=== PATIENT | female | born 1985 ===

== ENCOUNTER 2016-02-29 00:59 | Emergency (ER) | payer BC ==
--- NOTE | 2016-02-29 06:16 | ED NURSING NOTES ---
Clinical Report - Nurses [facility] [address] [place] [address] 02/29/2016 1:00 Patient: MIRIAN MENDOZA TRIAGE Triage time 0103. Acuity: LEVEL 3. Chief Complaint: ABDOMINAL PAIN and NAUSEA. LUCINA COMA SCORE: Lucina Coma Scale: 15- eyes open spontaneously (4); best verbal response- oriented x 4 (5); best motor response- obeys commands (6). --01:12 Asiya Oropeza R.N. 01:03 02/29/16. BP: 132/101. HR: 60. RR: 20 (unlabored). O2 saturation: 100% on room air. Temp: 98 F (oral). Pain level now: 5/10. --01:12 Asiya Oropeza R.N. Weight: 92.5 kg stated. Height/Length: 64 inches Per Patient. BMI: 35. --01:02 Asiya Oropeza R.N. Medications LamoTRIgine Oral (Tablet Dispersible 200 mg) 1 tablet, daily. --01:08 Asiya Oropeza R.N. Omeprazole Oral 20 mg, daily. --01:09 Asiya Oropeza R.N. Allergies Amoxicillin. (Uncertain reaction in childhood) PCN. Possible (Uncertain reaction in childhood) --01:08 Asiya Oropeza R.N. Medication/allergy information source: the patient. --01:12 Asiya Oropeza R.N. History Arrived by private vehicle. Historian: patient. Accompanied by family. Primary physician ([facility]). ( pt c/o abdominal pain, vomiting and cold symptoms since yesterday.). This started yesterday. She has had nausea, vomiting and abdominal pain. No diarrhea. Treatment [employer]: (Mucinex, Zofran). PAST MEDICAL HX: Immunizations: (seasonal flu-). Last normal menstrual period- a few days ago. SOCIAL HX: Light tobacco smoker (cigarette)- less than 1/2 a pack per day. History of drug use: marijuana. No alcohol use. ABUSE ASSESSMENT: No report of abuse. FALL RISK ASSESSMENT: Fall risk assessment completed. No fall risk identified. NUTRITIONAL RISK ASSESSMENT: The nutritional risk assessment revealed no deficiencies. FUNCTIONAL ASSESSMENT: Functional assessment: no impairments noted. LEARNING NEEDS ASSESSMENT: The learning needs assessment revealed no barriers. SKIN INTEGRITY ASSESSMENT: Skin integrity risk assessment completed. No skin integrity risk identified. --01:12 Asiya Oropeza R.N. PROBLEMS: Bipolar Disorder. --01:10 Asiya Oropeza R.N. ADDITIONAL SURGERIES: Adenoidectomy. Gastric sleeve []. Tonsillectomy. Tubal Ligation. --01:10 Asiya Oropeza R.N. Interventions ID band on patient. To waiting room. --01:12 Asiya Oropeza R.N. PHYSICAL ASSESSMENT 01:20 assessment limited, pt in position on stretcher. deferred to MD. GENERAL / NEURO / PSYCH: Alert. Oriented X 4. Appears in pain and anxious. HEENT: Mucous membranes are pink. RESPIRATORY: Respirations not labored. CVS: Capillary refill less than 2 seconds. GI / : The patient has had nausea. SKIN: Skin is warm and dry. --02:05 Asiya Oropeza R.N. 01:20. Ambulatory to room. --02:05 Asiya Oropeza R.N. NURSING PROGRESS NOTES Patient gowned. Head of bed elevated. Two patient identifiers checked. Call light placed in reach. Side rails up x 2. Bed placed in lowest position. Brakes of bed on. Patient ready for evaluation. --01:12 Asiya Oropeza R.N. 01:12 02/29/2016 Site #1 started via IV in the left forearm with an 18g angiocath, with aseptic technique and good blood return; one attempt. Blood drawn: rainbow set. Labeled in the presence of the patient and sent to the lab. Saline lock flushed with 10 mL saline. --01:12 Asiya Oropeza R.N. 02:10 02/29/2016 Site #1. (Patient pulled her own IV out, she stated it was too sweaty and the tape bothered her). --02:25 Denise Bach 02:12 02/29/2016 Site #1 removed. Catheter intact. Bandaid applied. --02:27 Denise Bach 02:22 02/29/2016 Site #2 started via IV in the right antecubital space with an 20g angiocath, with aseptic technique and good blood return; one attempt. Blood drawn: rainbow set. Labeled in the presence of the patient and sent to the lab. Saline lock flushed with 10 mL saline. --02:27 Denise Bach 02:02/29/2016 Started bag #1 1000 mL IV Fluids IV NS (Saline); at 1000 mL/hr over 1 hour(s) via site #2. Allergies verified and confirmed 5 rights. IV patency established. IV site checked: no pain, redness, or swelling. IV flushed thoroughly pre- and post-medication administration. --02:28 Denise Bach 02:28 02/29/2016 Zofran (Ondansetron HCl) IVP 4 mg given over 1 minute(s) via site #2. Allergies verified and confirmed 5 rights. IV patency established. IV site checked: no pain, redness, or swelling. IV flushed thoroughly pre- and post-medication administration. IVP given by RN. --02:28 Roxi Bachh 01:40 pt pulled IV out. pt stated there was too much tape. --02:34 Asiya Oropeza RJuanN. 03:05 02/29/2016 Maalox (Magnesium-Aluminum) PO Oral Suspension 30 mL given. Allergies verified and confirmed 5 rights. --03:05 Asiya Oropeza R.NJuan 03:05 02/29/2016 Lidocaine Viscous PO Oral Suspension 20 mL given. Allergies verified and confirmed 5 rights. --03:05 Asiya Oropeza R.N. 04:38 02/29/16. BP: 132/70. HR: 86. O2 saturation: 100%. Temp: 97.4 F. --04:39 Noreen Verma late entry -@ 03:00 pt resting on stretcher, took gown, bp cuff and oximeter off. --04:43 Asiya Oropeza R.NJuan 04:35 pt sleeping, waiting for CT results. --04:44 Asiya Oropeza R.N. 05:40 pt sleeping. no resp distress noted. pt waiting for CT results. pt unable to give urine specimen. --05:52 Asiya Oropeza R.N. 03:30 02/29/2016 IV Fluids IV NS Discontinued: bag #1 completed. Total amount infused: 1000 ml mL. IV patency established. IV site checked: no pain, redness, or swelling. IV flushed thoroughly. --06:22 Asiya Oropeza R.N. 06:21 02/29/2016 Site #2 removed upon discharge. Bandage applied. --06:21 Asiya Oropeza R.N. DISPOSITION / DISCHARGE Departure time: 620. Condition at departure: improved. No learning barriers present. Discharge instructions provided and reviewed with the patient. Patient verbalized understanding. Written instructions provided in Kazakh. The patient was discharged by the physician. She was discharged home and accompanied by family. She left the Emergency Department ambulatory and via private vehicle. Family member driving. Medication list reviewed and validated with the patient. --06:21 Asiya Oropeza R.N. 06:05 02/29/16. BP: 110/56. HR: 60. RR: 16 (unlabored). O2 saturation: 98% on room air. Temp: 98.2 F (oral). Pain level now: 07/02. --06:21 Asiya Oropeza R.N. Locked/Released at 02/29/2016 6:22 by Asiya Oropeza R.N.
--- NOTE | 2016-02-29 06:16 | ED CLINICAL REPORT ---
Clinical Report - Physicians/Mid Levels [facility] [address] [place] [address] 02/29/2016 1:00 Patient: MIRIAN MENDOZA Time Seen: 02:02 Feb 29 2016. Arrived- By private vehicle. Historian- patient. CPT: ER phys charges level 4 (#[id number]). HISTORY OF PRESENT ILLNESS Chief Complaint: ABDOMINAL PAIN and VOMITING and NAUSEA. At its maximum, severity described as mild. When seen in the E.D., severity described as mild. Modifying factors- worsened by food. Not relieved by anything. It is described as "pain" and it is described as located in the epigastric area. This started yesterday and is still present. The patient has had nausea and vomiting. Similar symptoms previously: As bad. Diagnosis: ulcer. Recent medical care: Not recently seen/assessed. REVIEW OF SYSTEMS No constipation, black stools, hematemesis, difficulty with urination or pain with urination. No urinary frequency, fever, sore throat, chest pain or difficulty breathing. No cough, joint pain or chills. All systems otherwise negative, except as recorded above. PAST HISTORY Bipolar Disorder. - ADDITIONAL SURGERIES: Adenoidectomy. Gastric sleeve []. Tonsillectomy. Tubal Ligation. --. Medications: Omeprazole Oral 20 mg, daily. LamoTRIgine Oral (Tablet Dispersible 200 mg) 1 tablet, daily. Allergies: Amoxicillin. (Uncertain reaction in childhood) PCN. Possible (Uncertain reaction in childhood). SOCIAL HISTORY Heavy tobacco smoker (cigarette)- less than 1 pack per day. History of drug use: marijuana. No alcohol use. ADDITIONAL NOTES The nursing notes have been reviewed. PHYSICAL EXAM Vital Signs: 02/29/2016 01:03 BP: 132/101. HR: 60. RR: 20. O2 saturation: 100%. Temp: 98 F. Pain level now: 5/10. Appearance: Alert. Anxious. Patient in mild distress. Eyes: Eyes normal inspection. ENT: Pharynx normal. Neck: Normal inspection. CVS: Normal heart rate and rhythm. Heart sounds normal. Pulses normal. Respiratory: No respiratory distress. Breath sounds normal. Abdomen: Soft. Moderate tenderness in the epigastric area. Abnormal bowel sounds: diminished. Back: Normal inspection. Skin: Normal skin color. Neuro: Oriented X 3. LABS, X-RAYS, AND EKG KUB: (upper abddomen air-fluid levels.). Views: erect AP. Technique: good. The X-rays were independently viewed by me and interpreted contemporaneously by me. Abdominal CT: No acute disease. Laboratory Tests: UA-Culture if indicated: (EVELIA: 02/29/2016 04:35) ( [facility] Final results Test Result Flag Units (Reference) URINE COLOR YELLOW URINE APPEARANCE CLEAR URINE GLUCOSE NEGATIVE (NEGATIVE) URINE BILIRUBIN NEGATIVE (NEGATIVE) URINE KETONE 2+ (NEGATIVE) URINE SPECIFIC GRAVITY 1.020 (1.010-1.030) URINE PH 7.5 (5.0-8.0) URINE PROTEIN NEGATIVE (NEGATIVE) URINE UROBILINOGEN 0.2 EU/dL (0.2-1.0) URINE NITRITE NEGATIVE (NEGATIVE) URINE BLOOD NEGATIVE (NEGATIVE) URINE LEUK ESTERASE NEGATIVE (NEGATIVE) URINE RBC 0-1 rbc/hpf (0-1) URINE WBC 0-1 wbc/hpf (0-1) URINE EPITHELIAL CELLS 1-3 EPI/hpf (0-5) URINE BACTERIA NONE SEEN (NONE SEEN) URINE COMMENT CULT NOT INDICATED URINE CULTURES ARE SET-UP BASED ON THE FOLLOWING CRITERIA:POSITIVE NITRITEPOSITIVE LEUKOCYTE ESTERASEGREATER THAN 10 WHITE BLOOD CELLSMODERATE (2+) OR GREATER BACTERIA Urine: (EVELIA: 02/29/2016 04:35) ( [facility] 02/29/2016 05:41) Final results Test Result Flag Units (Reference) URINE NEGATIVE CBC w Diff: (EVELIA: 02/29/2016 01:12) ( [facility] 02/29/2016 02:38) Final results Test Result Flag Units (Reference) WHITE BLOOD COUNT 6.1 K/uL (4.5-11.5) RED BLOOD COUNT 5.51 H M/uL (4.00-5.20) HEMOGLOBIN 12.7 gm/dL (12.0-16.0) HEMATOCRIT 40.7 % (36.0-46.0) MEAN CELL VOLUME 74 L fL (80-100) MEAN CORPUSCULAR HGB 23 L pg (26-34) MEAN CORPUSCULAR HGB CONC 31 g/dL (31-37) RED CELL DISTRIBUTION WIDTH 16.7 H % (11.6-14.8) PLATELET COUNT 180 K/uL (150-400) NEUTROPHIL % 54.2 % (50-75) LYMPH % 28.2 % (25-40) MONO % 13.3 % (3-14) EOSINOPHIL % 3.5 % (0-4) BASOPHIL % 0.8 % (0-2) Urine Drug Screen: (EVELIA: 02/29/2016 04:35) ( MsgRcvd 02/29/2016 05:46) Final results Test Result Flag Units (Reference) AMPHETAMINE/METHAMPHETAMINE NEGATIVE (NEGATIVE) BARBITURATE NEGATIVE (NEGATIVE) BENZODIAZEPINE NEGATIVE (NEGATIVE) CANNABINOID POSITIVE H (NEGATIVE) COCAINE NEGATIVE (NEGATIVE) ECSTASY NEGATIVE (NEGATIVE) METHADONE NEGATIVE (NEGATIVE) OPIATE NEGATIVE (NEGATIVE) The urine drug screen is a qualitative screening test fordrug overdose and abuse. All screen results should beconsidered as presumptive.Drugs screened for are as follows:BenzodiazepinesCocaineAmphetamines/MetamphetaminesTHC (Tetrahydrocannabinol)OpiatesBarbituratesEcstasyMethadonePositive results are unconfirmed. For confirmation, notifythe lab for the specimen to be sent to the reference lab.All confirmations must be performed by a differentmethodology.The ingestion of natural herbal and plant productscontaining Ephedra/Ephedra metabolites can produce in urineone or more substances capable of cross reacting withamphetamine/methamphetamine immunoassays. These testsprovide a preliminary result only. A more specificalternative chemical method must be used to obtain aconfirmed analytical result. CMP: (EVELIA: 02/29/2016 01:12) ( MsgRcvd 02/29/2016 02:38) Final results Test Result Flag Units (Reference) GLUCOSE 108 mg/dL (70-110) BUN 5 L mg/dL (7-18) CREATININE 0.9 mg/dL (0.6-1.3) Estimated GFR >60 mL/min Estimated GFR- >60 mL/min Note: Persistent reduction over 3 months in eGFR<60 mL/min/1.73 m2 defines CKD. Patients with eGFR values>=60 mL/min/1.73 m2 may also have CKD if evidence ofpersistent proteinuria. Additional information may be foundat www.kidney.org. SODIUM 143 mmol/L (136-145) POTASSIUM 3.3 L mmol/L (3.5-5.1) CHLORIDE 107 mmol/L (98-107) CARBON DIOXIDE 24 mmol/L (21-32) CALCIUM 8.8 mg/dL (8.5-10.1) TOTAL PROTEIN 7.9 g/dL (6.4-8.2) ALBUMIN 4.0 g/dL (3.3-5.0) BILIRUBIN, TOTAL 0.4 mg/dL (0.0-1.0) ALKALINE PHOSPHATASE 99 U/L (46-116) AST (SGOT) 15 U/L (15-37) ALT (SGPT) 20 U/L (12-78) LIPASE 135 U/L (73-393) AMYLASE 46 U/L (25-115) . PROGRESS AND PROCEDURES Course of Care: Air-fluid levels on abdominal film . Will get CT to r/io early SBO. IV NS Zofran 4 mg White GI cocktail: Much better. Patient/family counseled. Disposition: Discharged. Condition: stable. CLINICAL IMPRESSION Acute epigastric abdominal pain of unknown cause. INSTRUCTIONS Take clear liquids only (frequent sips) for the next 24 hours until better. Advance diet as tolerated. Your Current Medications: CONTINUE TAKING THE FOLLOWING MEDICATIONS: LamoTRIgine Oral : Tablet Dispersible 200 mg, 1 tablet daily. Omeprazole Oral : 20 mg daily. Prescription Medications: Hydrocodone/APAP 5mg/325mg: take 1 to 2 orally every 6 hours as needed for pain. Dispense fifteen (15). No refills. Zofran 4 mg: Take 1 orally every six hours as needed for nausea/vomiting. Dispense ten (10). No refills. Substitution is permissible. Carafate 1 gm tablets: take 1 orally four times daily (1 hour before meals and at bedtime). Dispense sixty (60). No refills. Substitution is permissible. Prilosec 40 mg capsules: take 1 capsule orally every day for 10 days. Dispense ten (10). No refill. Substitution is permissible. Follow-up: Follow up with your doctor in one day. Call for an appointment. Understanding of the discharge instructions verbalized by patient. (Electronically signed by Richard Akhtar MD 03/02/2016 11:57)
--- NOTE | 2016-02-29 06:16 | ED CLINICAL REPORT ---
Clinical Report - Physicians/Mid Levels [facility] [address] [place] [address] 02/29/2016 1:00 Patient: MIRIAN MENDOZA Time Seen: 02:02 Feb 29 2016. Arrived- By private vehicle. Historian- patient. CPT: ER phys charges level 4 (#[id number]). HISTORY OF PRESENT ILLNESS Chief Complaint: ABDOMINAL PAIN and VOMITING and NAUSEA. At its maximum, severity described as mild. When seen in the E.D., severity described as mild. Modifying factors- worsened by food. Not relieved by anything. It is described as "pain" and it is described as located in the epigastric area. This started yesterday and is still present. The patient has had nausea and vomiting. Similar symptoms previously: As bad. Diagnosis: ulcer. Recent medical care: Not recently seen/assessed. REVIEW OF SYSTEMS No constipation, black stools, hematemesis, difficulty with urination or pain with urination. No urinary frequency, fever, sore throat, chest pain or difficulty breathing. No cough, joint pain or chills. All systems otherwise negative, except as recorded above. PAST HISTORY Bipolar Disorder. - ADDITIONAL SURGERIES: Adenoidectomy. Gastric sleeve []. Tonsillectomy. Tubal Ligation. --. Medications: Omeprazole Oral 20 mg, daily. LamoTRIgine Oral (Tablet Dispersible 200 mg) 1 tablet, daily. Allergies: Amoxicillin. (Uncertain reaction in childhood) PCN. Possible (Uncertain reaction in childhood). SOCIAL HISTORY Heavy tobacco smoker (cigarette)- less than 1 pack per day. History of drug use: marijuana. No alcohol use. ADDITIONAL NOTES The nursing notes have been reviewed. PHYSICAL EXAM Vital Signs: 02/29/2016 01:03 BP: 132/101. HR: 60. RR: 20. O2 saturation: 100%. Temp: 98 F. Pain level now: 5/10. Appearance: Alert. Anxious. Patient in mild distress. Eyes: Eyes normal inspection. ENT: Pharynx normal. Neck: Normal inspection. CVS: Normal heart rate and rhythm. Heart sounds normal. Pulses normal. Respiratory: No respiratory distress. Breath sounds normal. Abdomen: Soft. Moderate tenderness in the epigastric area. Abnormal bowel sounds: diminished. Back: Normal inspection. Skin: Normal skin color. Neuro: Oriented X 3. LABS, X-RAYS, AND EKG KUB: (upper abddomen air-fluid levels.). Views: erect AP. Technique: good. The X-rays were independently viewed by me and interpreted contemporaneously by me. Abdominal CT: No acute disease. Laboratory Tests: UA-Culture if indicated: (EVELIA: 02/29/2016 04:35) ( [facility] Final results Test Result Flag Units (Reference) URINE COLOR YELLOW URINE APPEARANCE CLEAR URINE GLUCOSE NEGATIVE (NEGATIVE) URINE BILIRUBIN NEGATIVE (NEGATIVE) URINE KETONE 2+ (NEGATIVE) URINE SPECIFIC GRAVITY 1.020 (1.010-1.030) URINE PH 7.5 (5.0-8.0) URINE PROTEIN NEGATIVE (NEGATIVE) URINE UROBILINOGEN 0.2 EU/dL (0.2-1.0) URINE NITRITE NEGATIVE (NEGATIVE) URINE BLOOD NEGATIVE (NEGATIVE) URINE LEUK ESTERASE NEGATIVE (NEGATIVE) URINE RBC 0-1 rbc/hpf (0-1) URINE WBC 0-1 wbc/hpf (0-1) URINE EPITHELIAL CELLS 1-3 EPI/hpf (0-5) URINE BACTERIA NONE SEEN (NONE SEEN) URINE COMMENT CULT NOT INDICATED URINE CULTURES ARE SET-UP BASED ON THE FOLLOWING CRITERIA:POSITIVE NITRITEPOSITIVE LEUKOCYTE ESTERASEGREATER THAN 10 WHITE BLOOD CELLSMODERATE (2+) OR GREATER BACTERIA Urine: (EVELIA: 02/29/2016 04:35) ( [facility] 05[facility]41[facility] Final results Test Result Flag Units (Reference) URINE NEGATIVE CBC w Diff: (EVELIA: 02/29/2016 01:12) ( [facility] 02/29/2016 02:38) Final results Test Result Flag Units (Reference) WHITE BLOOD COUNT 6.1 K/uL (4.5-11.5) RED BLOOD COUNT 5.51 H M/uL (4.00-5.20) HEMOGLOBIN 12.7 gm/dL (12.0-16.0) HEMATOCRIT 40.7 % (36.0-46.0) MEAN CELL VOLUME 74 L fL (80-100) MEAN CORPUSCULAR HGB 23 L pg (26-34) MEAN CORPUSCULAR HGB CONC 31 g/dL (31-37) RED CELL DISTRIBUTION WIDTH 16.7 H % (11.6-14.8) PLATELET COUNT 180 K/uL (150-400) NEUTROPHIL % 54.2 % (50-75) LYMPH % 28.2 % (25-40) MONO % 13.3 % (3-14) EOSINOPHIL % 3.5 % (0-4) BASOPHIL % 0.8 % (0-2) Urine Drug Screen: (EVELIA: 02/29/2016 04:35) ( MsgRcvd 02/29/2016 05:46) Final results Test Result Flag Units (Reference) AMPHETAMINE/METHAMPHETAMINE NEGATIVE (NEGATIVE) BARBITURATE NEGATIVE (NEGATIVE) BENZODIAZEPINE NEGATIVE (NEGATIVE) CANNABINOID POSITIVE H (NEGATIVE) COCAINE NEGATIVE (NEGATIVE) ECSTASY NEGATIVE (NEGATIVE) METHADONE NEGATIVE (NEGATIVE) OPIATE NEGATIVE (NEGATIVE) The urine drug screen is a qualitative screening test fordrug overdose and abuse. All screen results should beconsidered as presumptive.Drugs screened for are as follows:BenzodiazepinesCocaineAmphetamines/MetamphetaminesTHC (Tetrahydrocannabinol)OpiatesBarbituratesEcstasyMethadonePositive results are unconfirmed. For confirmation, notifythe lab for the specimen to be sent to the reference lab.All confirmations must be performed by a differentmethodology.The ingestion of natural herbal and plant productscontaining Ephedra/Ephedra metabolites can produce in urineone or more substances capable of cross reacting withamphetamine/methamphetamine immunoassays. These testsprovide a preliminary result only. A more specificalternative chemical method must be used to obtain aconfirmed analytical result. CMP: (EVELIA: 02/29/2016 01:12) ( MsgRcvd 02/29/2016 02:38) Final results Test Result Flag Units (Reference) GLUCOSE 108 mg/dL (70-110) BUN 5 L mg/dL (7-18) CREATININE 0.9 mg/dL (0.6-1.3) Estimated GFR >60 mL/min Estimated GFR- >60 mL/min Note: Persistent reduction over 3 months in eGFR<60 mL/min/1.73 m2 defines CKD. Patients with eGFR values>=60 mL/min/1.73 m2 may also have CKD if evidence ofpersistent proteinuria. Additional information may be foundat www.kidney.org. SODIUM 143 mmol/L (136-145) POTASSIUM 3.3 L mmol/L (3.5-5.1) CHLORIDE 107 mmol/L (98-107) CARBON DIOXIDE 24 mmol/L (21-32) CALCIUM 8.8 mg/dL (8.5-10.1) TOTAL PROTEIN 7.9 g/dL (6.4-8.2) ALBUMIN 4.0 g/dL (3.3-5.0) BILIRUBIN, TOTAL 0.4 mg/dL (0.0-1.0) ALKALINE PHOSPHATASE 99 U/L (46-116) AST (SGOT) 15 U/L (15-37) ALT (SGPT) 20 U/L (12-78) LIPASE 135 U/L (73-393) AMYLASE 46 U/L (25-115) . PROGRESS AND PROCEDURES Course of Care: Air-fluid levels on abdominal film . Will get CT to r/io early SBO. IV NS Zofran 4 mg White GI cocktail: Much better. Patient/family counseled. Disposition: Discharged. Condition: stable. CLINICAL IMPRESSION Acute epigastric abdominal pain of unknown cause. INSTRUCTIONS Take clear liquids only (frequent sips) for the next 24 hours until better. Advance diet as tolerated. Your Current Medications: CONTINUE TAKING THE FOLLOWING MEDICATIONS: LamoTRIgine Oral : Tablet Dispersible 200 mg, 1 tablet daily. Omeprazole Oral : 20 mg daily. Prescription Medications: Hydrocodone/APAP 5mg/325mg: take 1 to 2 orally every 6 hours as needed for pain. Dispense fifteen (15). No refills. Zofran 4 mg: Take 1 orally every six hours as needed for nausea/vomiting. Dispense ten (10). No refills. Substitution is permissible. Carafate 1 gm tablets: take 1 orally four times daily (1 hour before meals and at bedtime). Dispense sixty (60). No refills. Substitution is permissible. Prilosec 40 mg capsules: take 1 capsule orally every day for 10 days. Dispense ten (10). No refill. Substitution is permissible. Follow-up: Follow up with your doctor in one day. Call for an appointment. Understanding of the discharge instructions verbalized by patient. (Electronically signed by Richard Akhtar MD 03/02/2016 11:57)
--- NOTE | 2016-02-29 06:16 | ED ORDER SUMMARY ---
..... Patient: MIRIAN MENDOZA OrderSheet [facility] VisitID: [id number] [place] [address] 31y, F Registration Date/Time: 02/29/2016 ORDER SHEET Weight: 92.5 kg (stated) Allergies: Amoxicillin, PCN GENERAL ORDERS: CBC w Diff Urgent (02:08 02/29/2016 Shawna ESPINOSA) (Ack 2:08 LMuller) (2:21 JUANullard R.N.) CMP Urgent (02:08 02/29/2016 Shawna ESPINOSA) (Ack 2:08 LMuller) (2:21 Keshawn R.N.) UA-Culture if indicated Urgent (02:08 02/29/2016 Shawna ESPINOSA) (Ack 2:08 LMuller) (5:19 LMuller) Urine Urgent (02:08 02/29/2016 Shawna ESPINOSA) (Ack 2:08 LMuller) (5:19 LMuller) Urine Drug Screen Urgent (02:08 02/29/2016 Shawna ESPINOSA) (Ack 2:08 LMuller) (5:19 LMuller) Lipase Urgent (02:08 02/29/2016 Shawna ESPINOSA) (Ack 2:08 LMuller) (2:21 JUANullard R.N.) Amylase Urgent (02:08 02/29/2016 Shawna ESPINOSA) (Ack 2:08 LMuller) (2:21 Keshawn R.N.) Abdomen 1V Upright Urgent (02:56 02/29/2016 Shawna ESPINOSA) (Ack 3:00 LMuller) (3:07 LMuller) CT Abd/Pel w Cont (No) (N/A) Urgent (03:40 02/29/2016 Shawna ESPINOSA) (Ack 3:47 LMuller) (4:22 Jem) MEDICATION ORDERS: GI Cocktail WHITE PO 50 mL (NOW) (02:56 02/29/2016 Shawna ESPINOSA) (Ack 2:57 HKone R.N.) (3:05 HKone R.N.) IV FLUIDS: IV NS : initial bolus 1000 mL (1000 mL/hr), then 1000 mL/hr for X1 (NOW); Routine (02:07 02/29/2016 Shawna ESPINOSA) (Ack 2:10 HSoule) (2:28 HSoule) Zofran IV 4 mg (NOW) (02:08 02/29/2016 Shawna ESPINOSA) (Ack 2:10 HSoule) (2:28 HSoule) ORDER SHEET NOTES: [Electronically signed by Asiya Oropeza R.N. (06:02/29/2016)] [Electronically signed by Richadr Akhtar MD (11:57 03/02/2016)] [Electronically locked/signed by Asiya Oropeza R.N. (06:02/29/2016)]
--- NOTE | 2016-02-29 06:16 | ED ORDER SUMMARY ---
..... Patient: MIRIAN MENDOZA OrderSheet [facility] VisitID: [id number] [place] [address] 31y, F Registration Date/Time: 02/29/2016 ORDER SHEET Weight: 92.5 kg (stated) Allergies: Amoxicillin, PCN GENERAL ORDERS: CBC w Diff Urgent (02:08 02/29/2016 Shawna ESPINOSA) (Ack 2:08 LMuller) (2:21 JUANullard R.N.) CMP Urgent (02:08 02/29/2016 Shawna ESPINOSA) (Ack 2:08 LMuller) (2:21 Keshawn R.N.) UA-Culture if indicated Urgent (02:08 02/29/2016 Shawna ESPINOSA) (Ack 2:08 LMuller) (5:19 LMuller) Urine Urgent (02:08 02/29/2016 Shawna ESPINOSA) (Ack 2:08 LMuller) (5:19 LMuller) Urine Drug Screen Urgent (02:08 02/29/2016 Shawna ESPINOSA) (Ack 2:08 LMuller) (5:19 LMuller) Lipase Urgent (02:08 02/29/2016 Shwana ESPINOSA) (Ack 2:08 LMuller) (2:21 JUANullard R.N.) Amylase Urgent (02:08 02/29/2016 Shawna ESPINOSA) (Ack 2:08 LMuller) (2:21 Keshawn R.N.) Abdomen 1V Upright Urgent (02:56 02/29/2016 Shawna ESPINOSA) (Ack 3:00 LMuller) (3:07 LMuller) CT Abd/Pel w Cont (No) (N/A) Urgent (03:40 02/29/2016 Shawna ESPINOSA) (Ack 3:47 LMuller) (4:22 Jem) MEDICATION ORDERS: GI Cocktail WHITE PO 50 mL (NOW) (02:56 02/29/2016 Shawna ESPINOSA) (Ack 2:57 HKone R.N.) (3:05 HKone R.N.) IV FLUIDS: IV NS : initial bolus 1000 mL (1000 mL/hr), then 1000 mL/hr for X1 (NOW); Routine (02:07 02/29/2016 Shawna ESPINOSA) (Ack 2:10 HSoule) (2:28 HSoule) Zofran IV 4 mg (NOW) (02:08 02/29/2016 Shawna ESPINOSA) (Ack 2:10 HSoule) (2:28 HSoule) ORDER SHEET NOTES: [Electronically signed by Asiya Oropeza R.N. (06:02/29/2016)] [Electronically signed by Richard Akhtar MD (11:57 03/02/2016)] [Electronically locked/signed by Asiya Oropeza R.N. (06:02/29/2016)]
--- NOTE | 2016-02-29 06:57 | DIAGNOSTIC IMAGING REPORT ---
PROCEDURE: XR ABDOMEN 1 VIEW UPRIGHT INDICATION: ABDOMINAL PAIN, initial encounter TECHNIQUE: AP upright view. COMPARISON: None. FINDINGS: Left upper quadrant surgical changes. Left upper quadrant nonspecific air fluid level. There is no mass, free air or suspicious calcification. Bones are unremarkable. IMPRESSION: 1. Nonspecific bowel gas pattern 2. Left upper quadrant surgical changes
--- NOTE | 2016-02-29 07:35 | DIAGNOSTIC IMAGING REPORT ---
PROCEDURE: CT ABD/PELVIS WITH CONTRAST CLINICAL INDICATION: Diffuse abdominal pain with nausea and vomiting. Initial encounter. TECHNIQUE: 100 ml of Isovue 300 were injected intravenously and axial images were obtained of the entire abdomen and pelvis with sagittal and coronal reformations. COMPARISON: None. FINDINGS: ABDOMEN: Mild bibasilar atelectasis. Heart size is normal. Gastric sleeve. Borderline splenomegaly. Liver, gallbladder, pancreas, adrenal glands and the kidneys are normal. Normal abdominal aorta. Liquid stool in the ascending colon PELVIS: Normal appendix. 2.6 cm right ovarian cyst. Uterus, left adnexa and bladder are normal. Bilateral surgical clips suggestive of tubal ligation. No free fluid or inflammatory changes. Bones are unremarkable. IMPRESSION: 1. No acute changes 2. Gastric sleeve 3. Borderline splenomegaly 4. 2.6 cm right ovarian cyst 5. Preliminary results submitted by Dr. Kunz, [facility] radiology. All CT scans at this facility use dose modulation, iterative reconstruction, and/or weight-based dosing when appropriate to reduce radiation dose to as low as reasonably achievable.
--- NOTE | 2016-03-02 11:57 | ED MED RECONCILIATION SUMMARY ---
Patient: MIRIAN MENDOZA Medication Reconciliation Report [facility] VisitID: [id number] [place] [address] 31y, F Registration Date/Time: 02/29/2016 Weight: 92.5 kg Height/Length: 64 in. BMI: 35.0 ALLERGIES: Amoxicillin, PCN The patient's Home Medications are listed below: CONTINUE TAKING THE FOLLOWING MEDICATIONS: LamoTRIgine Oral (200 mg) 1 tablet, daily Omeprazole Oral 20 mg, daily The source(s) of the original Home Medication information: patient The following Medications were given to the patient in the Emergency Department: IV NS IV Fluids bolus 0, then 1000 mL/hr, administered: 02/29/2016 2:28:00 AM Zofran [IVP] IVP 4 mg, administered: 02/29/2016 2:28:00 AM Maalox [PO] PO 30 mL, administered: 02/29/2016 3:05:00 AM Lidocaine Viscous [PO] PO 20 mL, administered: 02/29/2016 3:05:00 AM The following Medications were prescribed to the patient: Hydrocodone/APAP 5mg/325mg: take 1 to 2 orally every 6 hours as needed for pain. Dispense fifteen (15). No refills. -- Richard Akhtar MD Zofran 4 mg: Take 1 orally every six hours as needed for nausea/vomiting. Dispense ten (10). No refills. Substitution is permissible. -- Richard Akhtar MD Carafate 1 gm tablets: take 1 orally four times daily (1 hour before meals and at bedtime). Dispense sixty (60). No refills. Substitution is permissible. -- Richard Akhtar MD Prilosec 40 mg capsules: take 1 capsule orally every day for 10 days. Dispense ten (10). No refill. Substitution is permissible. -- Richard Akhtar MD
--- NOTE | 2016-03-02 11:57 | ED DISCHARGE INSTRUCTIONS ---
Patient: MIRIAN MENDOZA General Instructions [facility] VisitID: [id number] [place] [address] 31y, F Registration Date/Time: 02/29/2016 Acute epigastric abdominal pain of unknown cause. INSTRUCTIONS Take clear liquids only (frequent sips) for the next 24 hours until better. Advance diet as tolerated. Your Current Medications: CONTINUE TAKING THE FOLLOWING MEDICATIONS: LamoTRIgine Oral : Tablet Dispersible 200 mg, 1 tablet daily. Omeprazole Oral : 20 mg daily. Prescription Medications: Hydrocodone/APAP 5mg/325mg: take 1 to 2 orally every 6 hours as needed for pain. Dispense fifteen (15). No refills. Zofran 4 mg: Take 1 orally every six hours as needed for nausea/vomiting. Dispense ten (10). No refills. Substitution is permissible. Carafate 1 gm tablets: take 1 orally four times daily (1 hour before meals and at bedtime). Dispense sixty (60). No refills. Substitution is permissible. Prilosec 40 mg capsules: take 1 capsule orally every day for 10 days. Dispense ten (10). No refill. Substitution is permissible. Follow-up: Follow up with your doctor in one day. Call for an appointment. Understanding of the discharge instructions verbalized by patient. ADDITIONAL INFORMATION Abdominal Pain, Unknown Cause (Female) The exact cause of your abdominal (stomach) pain is not certain. This does not mean that this is something to worry about, or the right tests were not done. Everyone likes to know the exact cause of the problem, but sometimes with abdominal pain, there is no clear-cut cause, and this could be a good thing. The good news is that your symptoms can be treated, and you will feel better. Your condition does not seem serious now; however, sometimes the signs of a serious problem may take more time to appear. For this reason,it is important for you to watch for any new symptoms, problems,or worsening of your condition. Over the next few days, the abdominal pain may come and go, or be continuous. Other common symptoms can include nausea and vomiting. Sometimes it can be difficult to tell if you feel nauseous, you may just feel bad and not associate that feeling with nausea. Constipation, diarrhea, and a fever may go along with the pain. The pain may continue even if treated correctly over the following days. Depending on how things go, sometimes the cause can become clear and may require further or different treatment. Additional evaluations, medications, or tests may be needed. Home care Your health care provider may prescribe medications for pain, symptoms, or an infection. Follow the health care provider's instructions for taking these medications. General care Rest until your next exam. No strenuous activities. Try to find positions that ease discomfort. A small pillow placed on the abdomen may help relieve pain. Something warm on your abdomen (such as a heating pad) may help, but be careful not to burn yourself. Diet Do not force yourself to eat, especially if having cramps, vomiting, or diarrhea. Water is important so you do not get dehydrated. Soup may also be good. Sports drinks may also help, especially if they are not too acidic. Make sure you don't drink sugary drinks as this can make things worse. Take liquids in small amounts. Do not guzzle them. Caffeine sometimes makes the pain and cramping worse. Avoid dairy products if you have vomiting or diarrhea. Don't eat large amounts at a time. Wait a few minutes between bites. Eat a diet low in fiber (called a low-residue diet). Foods allowed include refined breads, white rice, fruit and vegetable juices without pulp, tender meats. These foods will pass more easily through the intestine. Avoid whole-grain foods, whole fruits and vegetables, meats, seeds and nuts, fried or fatty foods, dairy, alcohol and spicy foods until your symptoms go away. Follow-up care Follow up with your health care provider as instructed, or if your pain does not begin to improve in the next 24 hours. When to seek medical care Seek prompt medical care if any of the following occur: Pain gets worse or moves to the right lower abdomen New or worsening vomiting or diarrhea Swelling of the abdomen Unable to pass stool for more than three days Fever of 100.4F (38C) or higher, or as directed by your healthcare provider. Blood in vomit or bowel movements (dark red or black color) Jaundice (yellow color of eyes and skin) Weakness, dizziness Chest, arm, back, neck or jaw pain Unexpected vaginal bleeding or missed period Call 911 Call emergency services if any of the following occur: Trouble breathing Confusion Fainting or loss of consciousness Rapid heart rate Seizure Clear Liquid Diet Clear liquids are any liquid that you can see through as well as those that are very easy to digest. This is used while the body is recovering from irritation or infection of the stomach or intestinal tract. It may also be used before special procedures or surgery. This diet is to be used no more than three days. You may include the following items. Adults Adults should drink a total of 23 quarts of liquid per day. It may be easier to drink small frequent servings rather than a few large ones. Liquids can include: Fruit juices.Strained orange juice or lemonade (no pulp), apple, grape and cranberry juice, clear fruit drinks, sports drinks Beverages.Sport drinks, sodas, mineral water (plain or flavored), tea, black coffee, liquid gelatin (add twice the recommended amount of water) Soups.Clear broth, consomm, bouillon Desserts.Plain gelatin, popsicles, fruit juice bars Children Over 2 years old The following liquids are acceptable for children over age 2: Fruit juices.Strained orange juice or lemonade (no pulp), apple, grape and cranberry juice, clear fruit drinks Beverages. Sports drinks, sodas, mineral water (plain or flavored), tea, liquid gelatin (add twice the recommended amount of water) Soups. Clear broth, consomm, bouillon Desserts. Plain gelatin, popsicles, fruit juice bars Children under 2 years old Oral rehydration fluids such are available at drug stores and most grocery stores without a prescription. Omeprazole Magnesium Gastro-resistant tablet What is this medicine? OMEPRAZOLE (oh ME pray zol) prevents the production of acid in the stomach. It is used to treat the symptoms of heartburn. You can buy this medicine without a prescription. This product is not for long-term use, unless otherwise directed by your doctor or health health care facilities inspector. How should I use this medicine? Take this medicine by mouth. Follow the directions on the product label. If you are taking this medicine without a prescription, take one tablet every day. Do not use for longer than 14 days or repeat a course of treatment more often than every 4 months unless directed by a doctor or healthcare professional. Take your dose at regular intervals every 24 hours. Swallow the tablet whole with a drink of water. Do not crush, break or chew. This medicine works best if taken on an empty stomach 30 minutes before breakfast. If you are using this medicine with the prescription of your doctor or healthcare professional, follow the directions you were given. Do not take your medicine more often than directed. Talk to your jewelry store manager regarding the use of this medicine in children. Special care may be needed. What side effects may I notice from receiving this medicine? Side effects that you should report to your doctor or health health care facilities inspector as soon as possible: allergic reactions like skin rash, itching or hives, swelling of the face, lips, or tongue bone, muscle or joint pain breathing problems chest pain or chest tightness dark yellow or brown urine diarrhea dizziness fast, irregular heartbeat feeling faint or lightheaded fever or sore throat muscle spasm palpitations redness, blistering, peeling or loosening of the skin, including inside the mouth seizures tremors unusual bleeding or bruising unusually weak or tired yellowing of the eyes or skin Side effects that usually do not require medical attention (Report these to your doctor or health health care facilities inspector if they continue or are bothersome.): constipation dry mouth headache loose stools nausea What may interact with this medicine? Do not take this medicine with any of the following medications: atazanavir clopidogrel nelfinavir This medicine may also interact with the following medications: ampicillin certain medicines for anxiety or sleep certain medicines that treat or prevent blood clots like warfarin cyclosporine diazepam digoxin disulfiram iron salts phenytoin prescription medicine for fungal or yeast infection like itraconazole, ketoconazole, voriconazole saquinavir tacrolimus What if I miss a dose? If you miss a dose, take it as soon as you can. If it is almost time for your next dose, take only that dose. Do not take double or extra doses. Where should I keep my medicine? Keep out of the reach of children. Store at room temperature between 20 and 25 degrees C (68 and 77 degrees F). Protect from light and moisture. Throw away any unused medicine after the expiration date. What should I tell my health care provider before I take this medicine? They need to know if you have any of these conditions: black or bloody stools chest pain difficulty swallowing have had heartburn for over 3 months have heartburn with dizziness, lightheadedness or sweating liver disease stomach pain unexplained weight loss vomiting with blood wheezing an unusual or allergic reaction to omeprazole, other medicines, foods, dyes, or preservatives or trying to get breast-feeding What should I watch for while using this medicine? It can take several days before your heartburn gets better. Check with your doctor or health health care facilities inspector if your condition does not start to get better, or if it gets worse. Do not treat diarrhea with over the counter products. Contact your doctor if you have diarrhea that lasts more than 2 days or if it is severe and watery. Do not treat yourself for heartburn with this medicine for more than 14 days in a row. You should only use this medicine for a 2-week treatment period once every 4 months. If your symptoms return shortly after your therapy is complete, or within the 4 month time frame, call your doctor or health health care facilities inspector. You have been given the following additional information: Abdominal Pain, Unknown Cause, (Female) Diet, Clear Liquid Omeprazole Magnesium Gastro-resistant tablet (Electronically signed by Richard Akhtar MD 03/02/2016 11:57)
--- NOTE | 2016-03-02 11:57 | ED MAR SUMMARY ---
..... Medication Administration Record [facility] [address] [place] [address] Patient: MIRIAN MENDOZA Visit ID: [id number] 31y, F Weight: 92.5 kg Height/Length: 64 in BMI: 35 ALLERGIES: Amoxicillin, PCN Start 02:02/29/2016 Denise Bach,, Stop 03:02/29/2016 Asiya Oropeza RSharon Medication Administered: IV NS (SALINE), Dose: IV Fluids over 1 hour(s), Rate: 1000 mL/hr, Dispensed: 1000 mL bag, Site: #2 right AC. Medication Ordered: IV NS : initial bolus 1000 mL (1000 mL/hr), then 1000 mL/hr for X1 (NOW); Routine. Given 02:02/29/2016 Denise Bach, Medication Administered: ZOFRAN [IVP] (ONDANSETRON HCL), Dose: 4 mg IVP over 1 minute(s), Site: #2 right AC. Medication Ordered: Zofran IV 4 mg (NOW). Given 03:02/29/2016 Asiya Oropeza RJuanN. Medication Administered: MAALOX [PO] (MAGNESIUM-ALUMINUM), Dose: 30 mL Oral Suspension PO. Medication Ordered: GI Cocktail WHITE PO 50 mL (NOW). Given 03:02/29/2016 Asiya Oropeza RJuanN. Medication Administered: LIDOCAINE VISCOUS [PO], Dose: 20 mL Oral Suspension PO. Medication Ordered: GI Cocktail WHITE PO 50 mL (NOW).
--- NOTE | 2016-03-02 11:57 | ED MAR SUMMARY ---
..... Medication Administration Record [facility] [address] [place] [address] Patient: MIRIAN MENDOZA Visit ID: [id number] 31y, F Weight: 92.5 kg Height/Length: 64 in BMI: 35 ALLERGIES: Amoxicillin, PCN Start 02:02/29/2016 Denise Bach,, Stop 03:02/29/2016 Asiya Oropeza RSharon Medication Administered: IV NS (SALINE), Dose: IV Fluids over 1 hour(s), Rate: 1000 mL/hr, Dispensed: 1000 mL bag, Site: #2 right AC. Medication Ordered: IV NS : initial bolus 1000 mL (1000 mL/hr), then 1000 mL/hr for X1 (NOW); Routine. Given 02:02/29/2016 Denise Bach, Medication Administered: ZOFRAN [IVP] (ONDANSETRON HCL), Dose: 4 mg IVP over 1 minute(s), Site: #2 right AC. Medication Ordered: Zofran IV 4 mg (NOW). Given 03:02/29/2016 Asiya Oropeza RJuanN. Medication Administered: MAALOX [PO] (MAGNESIUM-ALUMINUM), Dose: 30 mL Oral Suspension PO. Medication Ordered: GI Cocktail WHITE PO 50 mL (NOW). Given 03:02/29/2016 Asiya Oropeza RJuanN. Medication Administered: LIDOCAINE VISCOUS [PO], Dose: 20 mL Oral Suspension PO. Medication Ordered: GI Cocktail WHITE PO 50 mL (NOW).
--- NOTE | 2016-03-02 11:57 | ED MED RECONCILIATION SUMMARY ---
Patient: MIRIAN MENDOZA Medication Reconciliation Report [facility] VisitID: [id number] [place] [address] 31y, F Registration Date/Time: 02/29/2016 Weight: 92.5 kg Height/Length: 64 in. BMI: 35.0 ALLERGIES: Amoxicillin, PCN The patient's Home Medications are listed below: CONTINUE TAKING THE FOLLOWING MEDICATIONS: LamoTRIgine Oral (200 mg) 1 tablet, daily Omeprazole Oral 20 mg, daily The source(s) of the original Home Medication information: patient The following Medications were given to the patient in the Emergency Department: IV NS IV Fluids bolus 0, then 1000 mL/hr, administered: 02/29/2016 2:28:00 AM Zofran [IVP] IVP 4 mg, administered: 02/29/2016 2:28:00 AM Maalox [PO] PO 30 mL, administered: 02/29/2016 3:05:00 AM Lidocaine Viscous [PO] PO 20 mL, administered: 02/29/2016 3:05:00 AM The following Medications were prescribed to the patient: Hydrocodone/APAP 5mg/325mg: take 1 to 2 orally every 6 hours as needed for pain. Dispense fifteen (15). No refills. -- Richard Akhtar MD Zofran 4 mg: Take 1 orally every six hours as needed for nausea/vomiting. Dispense ten (10). No refills. Substitution is permissible. -- Richard Akhtar MD Carafate 1 gm tablets: take 1 orally four times daily (1 hour before meals and at bedtime). Dispense sixty (60). No refills. Substitution is permissible. -- Richard Akhtar MD Prilosec 40 mg capsules: take 1 capsule orally every day for 10 days. Dispense ten (10). No refill. Substitution is permissible. -- Richard Akhtar MD
== END 2016-02-29 06:21 | disposition home or self-care (01) ==
LOC: ED SRH 00:59
DX: R10.13 Epigastric pain (principal); F31.9 Bipolar disorder, unspecified; Z79.899 Other long term (current) drug therapy; F17.210 Nicotine dependence, cigarettes, uncomplicated; Z88.1 Allergy status to other antibiotic agents
CPT/HCPCS: 90004; 90100; 92235; 92530; 92760; 92761; 92762; 92763; 92764; 92765; 92766; 92767; 93070; 95059

== ENCOUNTER 2016-03-01 12:47 | Emergency (ER) | payer BC ==
--- NOTE | 2016-03-01 17:11 | ED ORDER SUMMARY ---
..... Patient: MIRIAN MENDOZA OrderSheet [facility] VisitID: [id number] [address] [place] [address] 31y, F Registration Date/Time: 03/01/2016 ORDER SHEET Weight: 89.3 kg (stated) Allergies: Amoxicillin, PCN GENERAL ORDERS: CBC w Diff Urgent (14:52 03/01/2016 Rabia R.N. verbal order read back to Sergey ESPINOSA) (Ack 15:12 TBergley) (15:29 JRomanelli R.N.) CMP Urgent (14:52 03/01/2016 Rabia R.N. verbal order read back to Sergey ESPINOSA) (Ack 15:12 TBergley) (15:30 JRomanelli R.N.) Lipase Urgent (15:21 03/01/2016 Sergey ESPINOSA) (Ack 15:24 TBergley) (15:30 omanelli R.N.) UA-Culture if indicated Urgent (15:24 03/01/2016 Sergey ESPINOSA) (Ack 15:25 TBergley) (15:30 omanelli R.N.) - (GATORAIDE AFTER NAUSEA MEDICINE) (15:28 03/01/2016 Sergey ESPINOSA) (Ack 15:31 TBergley) (16:09 omanelli R.N.) MEDICATION ORDERS: IV FLUIDS: IV NS : initial bolus none -, then 1000 mL/hr for X2 (NOW) (14:52 03/01/2016 Rabia R.N. verbal order read back to Sergey ESPINOSA) (15:32 Rabia R.N.) Benadryl IV 50 mg (NOW) (15:25 03/01/2016 Sergey ESPINOSA) (15:40 Rabia R.N.) Haldol IV 3 mg (NOW) (15:25 03/01/2016 Sergey ESPINOSA) (15:40 Rabia R.N.) Zofran IV 8 mg (NOW) (15:29 03/01/2016 Rabia R.N. verbal order read back to Sergey ESPINOSA) (15:32 Rabia R.N.) Ceftriaxone IV 1 gm/50mL (NOW) (17:07 03/01/2016 Sergey ESPINOSA) (17:19 Rabia Stewart) ORDER SHEET NOTES: [Electronically signed by Yvonne Pena R.N. (19:16 03/01/2016)] [Electronically signed by Manuel Lee MD (15:18 03/03/2016)] [Electronically locked/signed by Yvonne Pena R.N. (19:16 03/01/2016)]
--- NOTE | 2016-03-01 17:11 | ED CLINICAL REPORT ---
Clinical Report - Physicians/Mid Levels [facility] [address] [place] [address] 03/01/2016 12:47 Patient: MIRIAN MENDOZA Time Seen: 15:08. Arrived- By private vehicle. Historian- patient. HISTORY OF PRESENT ILLNESS Chief Complaint: VOMITING persists. At its maximum, severity described as moderate. When seen in the E.D., severity described as moderate. This started 2 days ago and is still present. It was gradual in onset and has been waxing/waning. It is described as cramping. The patient has had nausea and severe vomiting. Recent medical care: The patient was seen recently at this facility in the emergency department. ( Normal CT yesterday.). REVIEW OF SYSTEMS Last normal menstrual period- recent but over. No constipation, difficulty with urination, pain with urination, sore throat or chest pain. No difficulty breathing, cough or back pain. Last bowel movement: yesterday- also passing flatus. PAST HISTORY PVP: PAST HISTORY Bipolar Disorder. - ADDITIONAL SURGERIES: Adenoidectomy. Gastric sleeve []. Tonsillectomy. Tubal Ligation. SOCIAL HISTORY Current every day smoker. ADDITIONAL NOTES The nursing notes have been reviewed. PHYSICAL EXAM Vital Signs: 03/01/2016 18:05 BP: 124/63. HR: 89. RR: 18. O2 saturation: 99%. Temp: 97.8 F. 03/01/2016 13:30 BP: 126/78. HR: 77. RR: 20. O2 saturation: 100%. Temp: 98.2 F. Pain level now: 0/10. Appearance: Alert. Patient in mild distress. Eyes: Eyes normal inspection. ENT: Pharynx normal. The mucous membranes are not dry. CVS: Heart sounds normal. Respiratory: No respiratory distress. Breath sounds normal. Abdomen: Soft and nontender. No mass. No rebound tenderness or guarding. Back: No CVA tenderness. Skin: Skin warm. Normal skin color. Extremities: Extremities exhibit normal ROM. No lower extremity edema. LABS, X-RAYS, AND EKG Laboratory Tests: UA-Culture if indicated: (EVELIA: 03/01/2016 15:15) ( [facility] 03/01/2016 16:02) Final results Test Result Flag Units (Reference) URINE COLOR KIP URINE APPEARANCE TURBID URINE GLUCOSE NEGATIVE (NEGATIVE) URINE BILIRUBIN ICTOTEST NEGATIVE (NEGATIVE) URINE KETONE 2+ (NEGATIVE) URINE SPECIFIC GRAVITY >= 1.030 (1.010-1.030) URINE PH 6.0 (5.0-8.0) URINE PROTEIN 1+ (NEGATIVE) URINE UROBILINOGEN 0.2 EU/dL (0.2-1.0) URINE NITRITE NEGATIVE (NEGATIVE) URINE BLOOD NEGATIVE (NEGATIVE) URINE LEUK ESTERASE POSITIVE (NEGATIVE) URINE RBC NONE SEEN rbc/hpf (0-1) URINE WBC 10-15 wbc/hpf (0-1) URINE EPITHELIAL CELLS >15 EPI/hpf (0-5) URINE BACTERIA MANY (4+) (NONE SEEN) CBC w Diff: (EVELIA: 03/01/2016 15:15) ( [facility] 03/01/2016 15:44) Final results Test Result Flag Units (Reference) WHITE BLOOD COUNT 9.4 K/uL (4.5-11.5) RED BLOOD COUNT 5.81 H M/uL (4.00-5.20) HEMOGLOBIN 13.5 gm/dL (12.0-16.0) HEMATOCRIT 42.9 % (36.0-46.0) MEAN CELL VOLUME 74 L fL (80-100) MEAN CORPUSCULAR HGB 23 L pg (26-34) MEAN CORPUSCULAR HGB CONC 32 g/dL (31-37) RED CELL DISTRIBUTION WIDTH 16.6 H % (11.6-14.8) PLATELET COUNT 205 K/uL (150-400) NEUTROPHIL % 73.5 % (50-75) LYMPH % 17.7 L % (25-40) MONO % 8.2 % (3-14) EOSINOPHIL % 0.3 % (0-4) BASOPHIL % 0.3 % (0-2) CMP: (EVELIA: 03/01/2016 15:15) ( [facility] 03/01/2016 15:57) Final results Test Result Flag Units (Reference) GLUCOSE 91 mg/dL (70-110) BUN 9 mg/dL (7-18) CREATININE 0.9 mg/dL (0.6-1.3) Estimated GFR >60 mL/min Estimated GFR- >60 mL/min Note: Persistent reduction over 3 months in eGFR<60 mL/min/1.73 m2 defines CKD. Patients with eGFR values>=60 mL/min/1.73 m2 may also have CKD if evidence ofpersistent proteinuria. Additional information may be foundat www.kidney.org. SODIUM 138 mmol/L (136-145) POTASSIUM 3.5 mmol/L (3.5-5.1) CHLORIDE 102 mmol/L (98-107) CARBON DIOXIDE 23 mmol/L (21-32) CALCIUM 8.9 mg/dL (8.5-10.1) TOTAL PROTEIN 7.6 g/dL (6.4-8.2) ALBUMIN 4.2 g/dL (3.3-5.0) BILIRUBIN, TOTAL 0.4 mg/dL (0.0-1.0) ALKALINE PHOSPHATASE 102 U/L (46-116) AST (SGOT) 17 U/L (15-37) ALT (SGPT) 23 U/L (12-78) LIPASE 208 U/L (73-393) . PROGRESS AND PROCEDURES Course of Care: 17:06 03/01/16. AFTER HALDOL AND BENADRYL ABLE TO DRINK AND RETAIN GATORAIDE. That makes obstruction at gastric sleeve unlikely. She is also given IVF. 17:07 03/01/16. UA looks like UTI which may or may not be related to primary symptoms. Disposition: Discharged. Condition: stable. CLINICAL IMPRESSION Abdominal pain of unknown cause. Probable urinary tract infection. INSTRUCTIONS (WE GAVE HALDOL AND BENADRYL YOU MAY HAVE A URINARY INFECTION RECHECK IN 12-24 HOURS IF NOT KEEING FLUIDS DOWN OR IF VOMITING MEDICATIONS.). Prescription Medications: Trimethoprim-Sulfamethoxazole DS: every 12 hours for 10 days. No refill. Phenergan 25 mg tablets: Take 1 tablet orally every 6 hours as needed for nausea and vomiting. Dispense fifteen (15). No refills. Substitution is permissible. Follow-up: Follow up with your doctor in three days. Understanding of the discharge instructions verbalized by patient. (Electronically signed by Manuel Lee MD 03/03/2016 15:18)
--- NOTE | 2016-03-01 17:11 | ED NURSING NOTES ---
Clinical Report - Nurses [facility] [address] [place] [address] 03/01/2016 12:47 Patient: MIRIAN MENDOZA TRIAGE Triage time 13:32. Acuity: LEVEL 3. Chief Complaint: NAUSEA and VOMITING. --13:35 Faye Rodriguez R.N. 13:30 03/01/16. BP: 126/78. HR: 77. RR: 20. O2 saturation: 100%. Temp: 98.2 F. Pain level now: 0/10. --13:35 Faye Rodriguez R.N. Weight: 89.3 kg stated. Height/Length: 65 inches Per Patient. BMI: 32.8. --13:34 Faye Rodriguez R.N. Medications LamoTRIgine Oral (Tablet Dispersible 200 mg) 1 tablet, daily. Omeprazole Oral 20 mg, daily. --18:09 Yvonne Pena R.N. Allergies Amoxicillin. (Uncertain reaction in childhood) PCN. Possible (Uncertain reaction in childhood) --18:09 Yvonne Pena R.N. History Arrived by private vehicle. Historian: patient. Unaccompanied. Primary physician ([facility]). Onset. (2 days ago). --13:35 Fyae Rodriguez R.N. Interventions ID band on patient. To room. --13:35 Faye Rodriguez R.N. NURSING PROGRESS NOTES 15:00 03/01/2016 Site #1 started via IV in the right antecubital space with an 20g angiocath using a topical anesthetic; one attempt. Blood drawn: rainbow set. Labeled in the presence of the patient and sent to the lab. --15:31 Ross Gross R.N. 15:07 03/01/2016 Started bag #1 1000 mL IV Fluids IV NS (Saline); at 1000 mL/hr over 60 minute(s) via site #1. Allergies verified and confirmed 5 rights. --15:32 Ross Gross R.N. 15:07 03/01/2016 Zofran (Ondansetron HCl) IVP 8 mg given over 2 minute(s) via site #1. Allergies verified and confirmed 5 rights. IV patency established. IV site checked: no pain, redness, or swelling. IV flushed thoroughly pre- and post-medication administration. IVP given by RN. --15:32 Ross Gross R.N. 15:29 03/01/2016 Benadryl (DiphenhydrAMINE HCl) IVP 50 mg given over 2 minute(s) via site #1. Allergies verified, confirmed 5 rights and sedative warning given to the patient. IV patency established. IV site checked: no pain, redness, or swelling. IV flushed thoroughly pre- and post-medication administration. IVP given by RN. --15:40 Ross Gross R.N. 15:38 03/01/2016 HALDOL (Haloperidol Lactate) IVP 3 mg given over 2 minute(s) via site #1. Allergies verified, confirmed 5 rights and sedative warning given. IV patency established. IV site checked: no pain, redness, or swelling. IV flushed thoroughly pre- and post-medication administration. IVP given by RN. --15:40 Ross Gross R.N. 16:03/01/2016 IV Fluids IV NS Bag Change: bag #1 infused. Total amount infused: 1000. STARTED bag #2 (1000 mL) at 1000 mL/hr. Confirmed 5 rights. IV patency established. IV site checked: no pain, redness, or swelling. IV flushed thoroughly. --16:06 Ross Gross R.N. 17:12 03/01/2016 Started 1 gm of Ceftriaxone IVPB in bag #1 50 mL; at 100 mL/hr over 30 minute(s) via site #1; Allergies verified and confirmed 5 rights. IV patency established. IV site checked: no pain, redness, or swelling. IV flushed thoroughly pre- and post-medication administration. --17:19 Ross Gross R.N. 18:11 03/01/2016 Site #1 removed upon discharge. Catheter intact. Pressure dressing applied. --18:11 Yvonne Pena R.N. 18:11 03/01/2016 Ceftriaxone IVPB Discontinued: bag #1 infused. Total amount infused: 50 mL. IV patency established. IV site checked: no pain, redness, or swelling. IV flushed thoroughly. --18:11 Yvonne Pena R.N. DISPOSITION / DISCHARGE Departure time: 18:Mar 01 2016. Condition at departure: improved. No learning barriers present. Discharge instructions provided and reviewed with the patient. Reviewed warnings. Reviewed medication(s). Treatments reviewed. Reviewed referrals. Patient verbalized understanding. Written instructions provided in Kiswahili. The patient was discharged home and accompanied by family. She left the Emergency Department ambulatory and via private vehicle. Family member driving. --18:02 Yvonne Pena R.N. 18:05 03/01/16. BP: 124/63. HR: 89. RR: 18. O2 saturation: 99%. Temp: 97.8 F. Pain level now 2/10. --18:08 Yvonne Pena R.N. Departure time: 175Mar 01 2016. --18:09 Yvonne Pena R.N. Locked/Released at 03/01/2016 19:16 by Yvonne Pena R.N.
--- NOTE | 2016-03-01 17:11 | ED CLINICAL REPORT ---
Clinical Report - Physicians/Mid Levels [facility] [address] [place] [address] 03/01/2016 12:47 Patient: MIRIAN MENDOZA Time Seen: 15:08. Arrived- By private vehicle. Historian- patient. HISTORY OF PRESENT ILLNESS Chief Complaint: VOMITING persists. At its maximum, severity described as moderate. When seen in the E.D., severity described as moderate. This started 2 days ago and is still present. It was gradual in onset and has been waxing/waning. It is described as cramping. The patient has had nausea and severe vomiting. Recent medical care: The patient was seen recently at this facility in the emergency department. ( Normal CT yesterday.). REVIEW OF SYSTEMS Last normal menstrual period- recent but over. No constipation, difficulty with urination, pain with urination, sore throat or chest pain. No difficulty breathing, cough or back pain. Last bowel movement: yesterday- also passing flatus. PAST HISTORY PVP: PAST HISTORY Bipolar Disorder. - ADDITIONAL SURGERIES: Adenoidectomy. Gastric sleeve []. Tonsillectomy. Tubal Ligation. SOCIAL HISTORY Current every day smoker. ADDITIONAL NOTES The nursing notes have been reviewed. PHYSICAL EXAM Vital Signs: 03/01/2016 18:05 BP: 124/63. HR: 89. RR: 18. O2 saturation: 99%. Temp: 97.8 F. 03/01/2016 13:30 BP: 126/78. HR: 77. RR: 20. O2 saturation: 100%. Temp: 98.2 F. Pain level now: 0/10. Appearance: Alert. Patient in mild distress. Eyes: Eyes normal inspection. ENT: Pharynx normal. The mucous membranes are not dry. CVS: Heart sounds normal. Respiratory: No respiratory distress. Breath sounds normal. Abdomen: Soft and nontender. No mass. No rebound tenderness or guarding. Back: No CVA tenderness. Skin: Skin warm. Normal skin color. Extremities: Extremities exhibit normal ROM. No lower extremity edema. LABS, X-RAYS, AND EKG Laboratory Tests: UA-Culture if indicated: (EVELIA: 03/01/2016 15:15) ( [facility] 03/01/2016 16:02) Final results Test Result Flag Units (Reference) URINE COLOR KIP URINE APPEARANCE TURBID URINE GLUCOSE NEGATIVE (NEGATIVE) URINE BILIRUBIN ICTOTEST NEGATIVE (NEGATIVE) URINE KETONE 2+ (NEGATIVE) URINE SPECIFIC GRAVITY >= 1.030 (1.010-1.030) URINE PH 6.0 (5.0-8.0) URINE PROTEIN 1+ (NEGATIVE) URINE UROBILINOGEN 0.2 EU/dL (0.2-1.0) URINE NITRITE NEGATIVE (NEGATIVE) URINE BLOOD NEGATIVE (NEGATIVE) URINE LEUK ESTERASE POSITIVE (NEGATIVE) URINE RBC NONE SEEN rbc/hpf (0-1) URINE WBC 10-15 wbc/hpf (0-1) URINE EPITHELIAL CELLS >15 EPI/hpf (0-5) URINE BACTERIA MANY (4+) (NONE SEEN) CBC w Diff: (EVELIA: 03/01/2016 15:15) ( [facility] 03/01/2016 15:44) Final results Test Result Flag Units (Reference) WHITE BLOOD COUNT 9.4 K/uL (4.5-11.5) RED BLOOD COUNT 5.81 H M/uL (4.00-5.20) HEMOGLOBIN 13.5 gm/dL (12.0-16.0) HEMATOCRIT 42.9 % (36.0-46.0) MEAN CELL VOLUME 74 L fL (80-100) MEAN CORPUSCULAR HGB 23 L pg (26-34) MEAN CORPUSCULAR HGB CONC 32 g/dL (31-37) RED CELL DISTRIBUTION WIDTH 16.6 H % (11.6-14.8) PLATELET COUNT 205 K/uL (150-400) NEUTROPHIL % 73.5 % (50-75) LYMPH % 17.7 L % (25-40) MONO % 8.2 % (3-14) EOSINOPHIL % 0.3 % (0-4) BASOPHIL % 0.3 % (0-2) CMP: (EVELIA: 03/01/2016 15:15) ( [facility] 03/01/2016 15:57) Final results Test Result Flag Units (Reference) GLUCOSE 91 mg/dL (70-110) BUN 9 mg/dL (7-18) CREATININE 0.9 mg/dL (0.6-1.3) Estimated GFR >60 mL/min Estimated GFR- >60 mL/min Note: Persistent reduction over 3 months in eGFR<60 mL/min/1.73 m2 defines CKD. Patients with eGFR values>=60 mL/min/1.73 m2 may also have CKD if evidence ofpersistent proteinuria. Additional information may be foundat www.kidney.org. SODIUM 138 mmol/L (136-145) POTASSIUM 3.5 mmol/L (3.5-5.1) CHLORIDE 102 mmol/L (98-107) CARBON DIOXIDE 23 mmol/L (21-32) CALCIUM 8.9 mg/dL (8.5-10.1) TOTAL PROTEIN 7.6 g/dL (6.4-8.2) ALBUMIN 4.2 g/dL (3.3-5.0) BILIRUBIN, TOTAL 0.4 mg/dL (0.0-1.0) ALKALINE PHOSPHATASE 102 U/L (46-116) AST (SGOT) 17 U/L (15-37) ALT (SGPT) 23 U/L (12-78) LIPASE 208 U/L (73-393) . PROGRESS AND PROCEDURES Course of Care: 17:06 03/01/16. AFTER HALDOL AND BENADRYL ABLE TO DRINK AND RETAIN GATORAIDE. That makes obstruction at gastric sleeve unlikely. She is also given IVF. 17:07 03/01/16. UA looks like UTI which may or may not be related to primary symptoms. Disposition: Discharged. Condition: stable. CLINICAL IMPRESSION Abdominal pain of unknown cause. Probable urinary tract infection. INSTRUCTIONS (WE GAVE HALDOL AND BENADRYL YOU MAY HAVE A URINARY INFECTION RECHECK IN 12-24 HOURS IF NOT KEEING FLUIDS DOWN OR IF VOMITING MEDICATIONS.). Prescription Medications: Trimethoprim-Sulfamethoxazole DS: every 12 hours for 10 days. No refill. Phenergan 25 mg tablets: Take 1 tablet orally every 6 hours as needed for nausea and vomiting. Dispense fifteen (15). No refills. Substitution is permissible. Follow-up: Follow up with your doctor in three days. Understanding of the discharge instructions verbalized by patient. (Electronically signed by Manuel Lee MD 03/03/2016 15:18)
--- NOTE | 2016-03-01 17:11 | ED ORDER SUMMARY ---
..... Patient: MIRIAN MENDOZA OrderSheet [facility] VisitID: [id number] [address] [place] [address] 31y, F Registration Date/Time: 03/01/2016 ORDER SHEET Weight: 89.3 kg (stated) Allergies: Amoxicillin, PCN GENERAL ORDERS: CBC w Diff Urgent (14:52 03/01/2016 Rabia R.N. verbal order read back to Sergey ESPINOSA) (Ack 15:12 TBergley) (15:29 JRomanelli R.N.) CMP Urgent (14:52 03/01/2016 Rabia R.N. verbal order read back to Sergey ESPINOSA) (Ack 15:12 TBergley) (15:30 JRomanelli R.N.) Lipase Urgent (15:21 03/01/2016 Sergey ESPINOSA) (Ack 15:24 TBergley) (15:30 omanelli R.N.) UA-Culture if indicated Urgent (15:24 03/01/2016 Sergey ESPINOSA) (Ack 15:25 TBergley) (15:30 omanelli R.N.) - (GATORAIDE AFTER NAUSEA MEDICINE) (15:28 03/01/2016 Sergey ESPINOSA) (Ack 15:31 TBergley) (16:09 omanelli R.N.) MEDICATION ORDERS: IV FLUIDS: IV NS : initial bolus none -, then 1000 mL/hr for X2 (NOW) (14:52 03/01/2016 Rabia R.N. verbal order read back to Sergey ESPINOSA) (15:32 Rabia R.N.) Benadryl IV 50 mg (NOW) (15:25 03/01/2016 Sergey ESPINOSA) (15:40 Rabia R.N.) Haldol IV 3 mg (NOW) (15:25 03/01/2016 Sergey ESPINOSA) (15:40 Rabia R.N.) Zofran IV 8 mg (NOW) (15:29 03/01/2016 Rabia R.N. verbal order read back to Sergey ESPINOSA) (15:32 Rabia R.N.) Ceftriaxone IV 1 gm/50mL (NOW) (17:07 03/01/2016 Sergey ESPINOSA) (17:19 Rabia Stewart) ORDER SHEET NOTES: [Electronically signed by Yvonne Pena R.N. (19:16 03/01/2016)] [Electronically signed by Manuel Lee MD (15:18 03/03/2016)] [Electronically locked/signed by Yvonne Pena R.N. (19:16 03/01/2016)]
--- NOTE | 2016-03-03 15:18 | ED MAR SUMMARY ---
..... Medication Administration Record [facility] [address] [place] [address] Patient: MIRIAN MENDOZA Visit ID: [id number] 31y, F Weight: 89.3 kg Height/Length: 65 in BMI: 32.8 ALLERGIES: Amoxicillin, PCN Start 15:07 03/01/2016 Ross Gross R.N. Medication Administered: IV NS (SALINE), Dose: IV Fluids over 60 minute(s), Rate: 1000 mL/hr, Dispensed: 1000 mL bag, Site: #1 right AC. Medication Ordered: IV NS : initial bolus none -, then 1000 mL/hr for X2 (NOW). Given 15:03/01/2016 Ross Gross R.N. Medication Administered: ZOFRAN [IVP] (ONDANSETRON HCL), Dose: 8 mg IVP over 2 minute(s), Site: #1 right AC. Medication Ordered: Zofran IV 8 mg (NOW). Given 15:03/01/2016 Ross Gross R.N. Medication Administered: BENADRYL [IVP] (DIPHENHYDRAMINE HCL), Dose: 50 mg IVP over 2 minute(s), Site: #1 right AC. Medication Ordered: Benadryl IV 50 mg (NOW). Given 15:38 03/01/2016 Ross Gross R.N. Medication Administered: HALDOL [IVP] (HALOPERIDOL LACTATE), Dose: 3 mg IVP over 2 minute(s), Site: #1 right AC. Medication Ordered: Haldol IV 3 mg (NOW). Start 17:12 03/01/2016 Ross Gross R.NJuan, Stop 18:11 03/01/2016 Yvonne Pena R.N. Medication Administered: CEFTRIAXONE [IVPB], Dose: 1 gm IVPB over 30 minute(s), Rate: 100 mL/hr, Dispensed: 50 mL bag, Site: #1 right AC. Medication Ordered: Ceftriaxone IV 1 gm/50mL (NOW).
--- NOTE | 2016-03-03 15:18 | ED MED RECONCILIATION SUMMARY ---
Patient: MIRIAN MENDOZA Medication Reconciliation Report [facility] VisitID: [id number] [address] [place] [address] 31y, F Registration Date/Time: 03/01/2016 Weight: 89.3 kg Height/Length: 65 in. BMI: 32.8 ALLERGIES: Amoxicillin, PCN The patient's Home Medications are listed below: THE FOLLOWING MEDICATIONS NEED TO BE RECONCILED: LamoTRIgine Oral (200 mg) 1 tablet, daily Omeprazole Oral 20 mg, daily The source(s) of the original Home Medication information: Not obtained. The following Medications were given to the patient in the Emergency Department: IV NS IV Fluids bolus 0, then 1000 mL/hr, administered: 03/01/2016 3:07:00 PM Zofran [IVP] IVP 8 mg, administered: 03/01/2016 3:07:00 PM Benadryl [IVP] IVP 50 mg, administered: 03/01/2016 3:29:00 PM HALDOL [IVP] IVP 3 mg, administered: 03/01/2016 3:38:00 PM Ceftriaxone [IVPB] IVPB bolus 0, then 1 gm 100 mL/hr, administered: 03/01/2016 5:12:00 PM The following Medications were prescribed to the patient: Trimethoprim-Sulfamethoxazole DS: every 12 hours for 10 days. No refill. -- Manuel Lee MD Phenergan 25 mg tablets: Take 1 tablet orally every 6 hours as needed for nausea and vomiting. Dispense fifteen (15). No refills. Substitution is permissible. -- Manuel Lee MD
--- NOTE | 2016-03-03 15:18 | ED MAR SUMMARY ---
..... Medication Administration Record [facility] [address] [place] [address] Patient: MIRIAN MENDOZA Visit ID: [id number] 31y, F Weight: 89.3 kg Height/Length: 65 in BMI: 32.8 ALLERGIES: Amoxicillin, PCN Start 15:07 03/01/2016 Ross Gross R.N. Medication Administered: IV NS (SALINE), Dose: IV Fluids over 60 minute(s), Rate: 1000 mL/hr, Dispensed: 1000 mL bag, Site: #1 right AC. Medication Ordered: IV NS : initial bolus none -, then 1000 mL/hr for X2 (NOW). Given 15:03/01/2016 Ross Gross R.N. Medication Administered: ZOFRAN [IVP] (ONDANSETRON HCL), Dose: 8 mg IVP over 2 minute(s), Site: #1 right AC. Medication Ordered: Zofran IV 8 mg (NOW). Given 15:03/01/2016 Ross Gross R.N. Medication Administered: BENADRYL [IVP] (DIPHENHYDRAMINE HCL), Dose: 50 mg IVP over 2 minute(s), Site: #1 right AC. Medication Ordered: Benadryl IV 50 mg (NOW). Given 15:38 03/01/2016 Ross Gross R.N. Medication Administered: HALDOL [IVP] (HALOPERIDOL LACTATE), Dose: 3 mg IVP over 2 minute(s), Site: #1 right AC. Medication Ordered: Haldol IV 3 mg (NOW). Start 17:12 03/01/2016 Ross Gross R.NJuan, Stop 18:11 03/01/2016 Yvonne Pena R.N. Medication Administered: CEFTRIAXONE [IVPB], Dose: 1 gm IVPB over 30 minute(s), Rate: 100 mL/hr, Dispensed: 50 mL bag, Site: #1 right AC. Medication Ordered: Ceftriaxone IV 1 gm/50mL (NOW).
--- NOTE | 2016-03-03 15:18 | ED MED RECONCILIATION SUMMARY ---
Patient: MIRIAN MENDOZA Medication Reconciliation Report [facility] VisitID: [id number] [address] [place] [address] 31y, F Registration Date/Time: 03/01/2016 Weight: 89.3 kg Height/Length: 65 in. BMI: 32.8 ALLERGIES: Amoxicillin, PCN The patient's Home Medications are listed below: THE FOLLOWING MEDICATIONS NEED TO BE RECONCILED: LamoTRIgine Oral (200 mg) 1 tablet, daily Omeprazole Oral 20 mg, daily The source(s) of the original Home Medication information: Not obtained. The following Medications were given to the patient in the Emergency Department: IV NS IV Fluids bolus 0, then 1000 mL/hr, administered: 03/01/2016 3:07:00 PM Zofran [IVP] IVP 8 mg, administered: 03/01/2016 3:07:00 PM Benadryl [IVP] IVP 50 mg, administered: 03/01/2016 3:29:00 PM HALDOL [IVP] IVP 3 mg, administered: 03/01/2016 3:38:00 PM Ceftriaxone [IVPB] IVPB bolus 0, then 1 gm 100 mL/hr, administered: 03/01/2016 5:12:00 PM The following Medications were prescribed to the patient: Trimethoprim-Sulfamethoxazole DS: every 12 hours for 10 days. No refill. -- Manuel Lee MD Phenergan 25 mg tablets: Take 1 tablet orally every 6 hours as needed for nausea and vomiting. Dispense fifteen (15). No refills. Substitution is permissible. -- Manuel Lee MD
--- NOTE | 2016-03-03 15:18 | ED DISCHARGE INSTRUCTIONS ---
Patient: MIRIAN MENDOZA General Instructions [facility] VisitID: [id number] [address] [place] [address] 31y, F Registration Date/Time: 03/01/2016 Abdominal pain of unknown cause. Probable urinary tract infection. INSTRUCTIONS (WE GAVE HALDOL AND BENADRYL YOU MAY HAVE A URINARY INFECTION RECHECK IN 12-24 HOURS IF NOT KEEING FLUIDS DOWN OR IF VOMITING MEDICATIONS.). Prescription Medications: Trimethoprim-Sulfamethoxazole DS: every 12 hours for 10 days. No refill. Phenergan 25 mg tablets: Take 1 tablet orally every 6 hours as needed for nausea and vomiting. Dispense fifteen (15). No refills. Substitution is permissible. Follow-up: Follow up with your doctor in three days. Understanding of the discharge instructions verbalized by patient. ADDITIONAL INFORMATION Abdominal Pain, Unknown Cause (Female) The exact cause of your abdominal (stomach) pain is not certain. This does not mean that this is something to worry about, or the right tests were not done. Everyone likes to know the exact cause of the problem, but sometimes with abdominal pain, there is no clear-cut cause, and this could be a good thing. The good news is that your symptoms can be treated, and you will feel better. Your condition does not seem serious now; however, sometimes the signs of a serious problem may take more time to appear. For this reason,it is important for you to watch for any new symptoms, problems,or worsening of your condition. Over the next few days, the abdominal pain may come and go, or be continuous. Other common symptoms can include nausea and vomiting. Sometimes it can be difficult to tell if you feel nauseous, you may just feel bad and not associate that feeling with nausea. Constipation, diarrhea, and a fever may go along with the pain. The pain may continue even if treated correctly over the following days. Depending on how things go, sometimes the cause can become clear and may require further or different treatment. Additional evaluations, medications, or tests may be needed. Home care Your health care provider may prescribe medications for pain, symptoms, or an infection. Follow the health care provider's instructions for taking these medications. General care Rest until your next exam. No strenuous activities. Try to find positions that ease discomfort. A small pillow placed on the abdomen may help relieve pain. Something warm on your abdomen (such as a heating pad) may help, but be careful not to burn yourself. Diet Do not force yourself to eat, especially if having cramps, vomiting, or diarrhea. Water is important so you do not get dehydrated. Soup may also be good. Sports drinks may also help, especially if they are not too acidic. Make sure you don't drink sugary drinks as this can make things worse. Take liquids in small amounts. Do not guzzle them. Caffeine sometimes makes the pain and cramping worse. Avoid dairy products if you have vomiting or diarrhea. Don't eat large amounts at a time. Wait a few minutes between bites. Eat a diet low in fiber (called a low-residue diet). Foods allowed include refined breads, white rice, fruit and vegetable juices without pulp, tender meats. These foods will pass more easily through the intestine. Avoid whole-grain foods, whole fruits and vegetables, meats, seeds and nuts, fried or fatty foods, dairy, alcohol and spicy foods until your symptoms go away. Follow-up care Follow up with your health care provider as instructed, or if your pain does not begin to improve in the next 24 hours. When to seek medical care Seek prompt medical care if any of the following occur: Pain gets worse or moves to the right lower abdomen New or worsening vomiting or diarrhea Swelling of the abdomen Unable to pass stool for more than three days Fever of 100.4F (38C) or higher, or as directed by your healthcare provider. Blood in vomit or bowel movements (dark red or black color) Jaundice (yellow color of eyes and skin) Weakness, dizziness Chest, arm, back, neck or jaw pain Unexpected vaginal bleeding or missed period Call 911 Call emergency services if any of the following occur: Trouble breathing Confusion Fainting or loss of consciousness Rapid heart rate Seizure Bladder Infection,Female (Adult) A bladder infection ("cystitis" or "UTI") usually causes a constant urge to urinate and a burning when passing urine. Urine may be cloudy, smelly or dark. There may be pain in the lower abdomen. A bladder infection occurs when bacteria from the vaginal area enter the bladder opening (urethra). This can occur from sexual intercourse, wearing tight clothing, dehydration and other factors. Home Care: Drink lots of fluids (at least 6-8 glasses a day, unless you must restrict fluids for other medical reasons). This will force the medicine into your urinary system and flush the bacteria out of your body. Avoid sexual intercourse until your symptoms are gone. Avoid caffeine, alcohol and spicy foods. These can irritate the bladder. A bladder infection is treated with antibiotics. You may also be given Pyridium (generic = phenazopyridine) to reduce the burning sensation. This medicine will cause your urine to become a bright orange color. The orange urine may stain clothing. You may wear a pad or panty-liner to protect clothing. Preventing Future Infections: Always wipe from front to back after a bowel movement. Keep the genital area clean and dry. Drink plenty of fluids each day to avoid dehydration. Both sexual partners should wash before intercourse. Urinate right after intercourse to flush out the bladder. Wear cotton underwear and cotton-lined panty hose; avoid tight-fitting pants. If you are on control pills and are having frequent bladder infections, discuss with your doctor. Follow Up: Return to this facility or see your doctor if ALL symptoms are not gone after three days of treatment. Get Prompt Medical Attention if any of the following occur: Fever of 100.4F (38C) or higher, or as directed by your healthcare provider No improvement by the third day of treatment Increasing back or abdominal pain Repeated vomiting; unable to keep medicine down Weakness, dizziness or fainting Vaginal discharge Pain, redness or swelling in the labia (outer vaginal area) Sulfamethoxazole, Trimethoprim Oral tablet What is this medicine? SULFAMETHOXAZOLE; TRIMETHOPRIM or SMX-TMP (suhl fuh meth OK caroline zohl; trye METH oh prim) is a combination of a sulfonamide antibiotic and a second antibiotic, trimethoprim. It is used to treat or prevent certain kinds of bacterial infections. It will not work for colds, flu, or other viral infections. How should I use this medicine? Take this medicine by mouth with a full glass of water. Follow the directions on the prescription label. Take your medicine at regular intervals. Do not take it more often than directed. Do not skip doses or stop your medicine early. Talk to your alumina plant supervisor regarding the use of this medicine in children. Special care may be needed. This medicine has been used in children as young as 2 months of age. What side effects may I notice from receiving this medicine? Side effects that you should report to your doctor or health critical care specialist as soon as possible: allergic reactions like skin rash or hives, swelling of the face, lips, or tongue breathing problems fever or chills, sore throat irregular heartbeat, chest pain joint or muscle pain pain or difficulty passing urine red pinpoint spots on skin redness, blistering, peeling or loosening of the skin, including inside the mouth unusual bleeding or bruising unusually weak or tired yellowing of the eyes or skin Side effects that usually do not require medical attention (report to your doctor or health critical care specialist if they continue or are bothersome): diarrhea dizziness headache loss of appetite nausea, vomiting nervousness What may interact with this medicine? Do not take this medicine with any of the following medications: aminobenzoate potassium dofetilide metronidazole This medicine may also interact with the following medications: CARLOS inhibitors like benazepril, enalapril, lisinopril, and ramipril cyclosporine digoxin diuretics indomethacin medicines for diabetes methenamine methotrexate phenytoin potassium supplements pyrimethamine sulfinpyrazone tricyclic antidepressants warfarin What if I miss a dose? If you miss a dose, take it as soon as you can. If it is almost time for your next dose, take only that dose. Do not take double or extra doses. Where should I keep my medicine? Keep out of the reach of children. Store at room temperature between 20 to 25 degrees C (68 to 77 degrees F). Protect from light. Throw away any unused medicine after the expiration date. What should I tell my health care provider before I take this medicine? They need to know if you have any of these conditions: anemia asthma being treated with anticonvulsants if you frequently drink alcohol containing drinks kidney disease liver disease low level of folic acid or zttuodi-[id number]-hlngyohhq dehydrogenase poor nutrition or malabsorption porphyria severe allergies thyroid disorder an unusual or allergic reaction to sulfamethoxazole, trimethoprim, sulfa drugs, other medicines, foods, dyes, or preservatives or trying to get breast-feeding What should I watch for while using this medicine? Tell your doctor or health critical care specialist if your symptoms do not improve. Drink several glasses of water a day to reduce the risk of kidney problems. Do not treat diarrhea with over the counter products. Contact your doctor if you have diarrhea that lasts more than 2 days or if it is severe and watery. This medicine can make you more sensitive to the sun. Keep out of the sun. If you cannot avoid being in the sun, wear protective clothing and use a sunscreen. Do not use sun lamps or tanning beds/booths. You have been given the following additional information: Abdominal Pain, Unknown Cause, (Female) Bladder Infection, Female (Adult) Sulfamethoxazole, Trimethoprim Oral tablet (Electronically signed by Manuel Lee MD 03/03/2016 15:18)
== END 2016-03-01 17:50 | disposition home or self-care (01) ==
LOC: ED SRH 12:47
DX: R10.9 Unspecified abdominal pain (principal); F31.9 Bipolar disorder, unspecified; Z79.899 Other long term (current) drug therapy; F17.210 Nicotine dependence, cigarettes, uncomplicated; Z88.1 Allergy status to other antibiotic agents
CPT/HCPCS: 90004; 90100; 92235; 95059

== ENCOUNTER 2016-05-06 00:57 | Emergency (ER) | payer BC ==
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
--- NOTE | 2016-05-08 10:06 | ED MAR SUMMARY ---
..... Medication Administration Record [facility] [address], [place] [id number] Patient: MIRIAN MENDOZA Visit ID: [id number] 31y, F Weight: 84.3 kg Height/Length: 65 in BMI: 31 ALLERGIES: Amoxicillin, Penicillins
--- NOTE | 2016-05-08 10:06 | ED MED RECONCILIATION SUMMARY ---
Patient: MIRIAN MENDOZA Medication Reconciliation Report [facility] VisitID: [id number] [address] [place] [address] 31y, F Registration Date/Time: 05/06/2016 Weight: 84.3 kg Height/Length: 65 in. BMI: 31.0 ALLERGIES: Amoxicillin, Penicillins The patient's Home Medications are listed below: CONTINUE TAKING THE FOLLOWING MEDICATIONS: B-12 Biotin LamoTRIgine Oral Omepra The source(s) of the original Home Medication information: patient The following Medications were given to the patient in the Emergency Department: None. The following Medications were prescribed to the patient: Motrin (available over the counter): take according to label instructions. -- Richard Akhtar MD Oxycodone/APAP 5 mg/325 mg: take 1 tablet orally every 6 hours as needed for pain. Dispense fifteen (15). No refills. -- Richard Akhtar MD
--- NOTE | 2016-05-08 10:06 | ED MAR SUMMARY ---
..... Medication Administration Record [facility] [address] [place], [place] [id number] Patient: MIRIAN MENDOZA Visit ID: [id number] 31y, F Weight: 84.3 kg Height/Length: 65 in BMI: 31 ALLERGIES: Amoxicillin, Penicillins
--- NOTE | 2016-05-08 10:06 | ED MED RECONCILIATION SUMMARY ---
Patient: MIRIAN MENDOZA Medication Reconciliation Report [facility] VisitID: [id number] [address] [place] [address] 31y, F Registration Date/Time: 05/06/2016 Weight: 84.3 kg Height/Length: 65 in. BMI: 31.0 ALLERGIES: Amoxicillin, Penicillins The patient's Home Medications are listed below: CONTINUE TAKING THE FOLLOWING MEDICATIONS: B-12 Biotin LamoTRIgine Oral Omepra The source(s) of the original Home Medication information: patient The following Medications were given to the patient in the Emergency Department: None. The following Medications were prescribed to the patient: Motrin (available over the counter): take according to label instructions. -- Richard Akhtar MD Oxycodone/APAP 5 mg/325 mg: take 1 tablet orally every 6 hours as needed for pain. Dispense fifteen (15). No refills. -- Richard Akhtar MD
--- NOTE | 2016-05-08 10:06 | ED DISCHARGE INSTRUCTIONS ---
Patient: MIRIAN MENDOZA General Instructions [facility] VisitID: [id number] [address] [place] [address] 31y, F Registration Date/Time: 05/06/2016 Costochondritis. An EKG was not performed because a benign, noncardiac etiology was evident without doing an EKG. Transient syncope due to acute pain. INSTRUCTIONS Apply heat for 15-20 minutes three times a day for one weeks. No strenuous activity. Warnings: GENERAL WARNINGS: Return or contact your physician immediately if your condition worsens or changes unexpectedly, if not improving as expected, or if other problems arise. Your Current Medications: CONTINUE TAKING THE FOLLOWING MEDICATIONS: B-12*. Biotin*. LamoTRIgine Oral. Omepra*. Prescription Medications: Oxycodone/APAP 5 mg/325 mg: take 1 tablet orally every 6 hours as needed for pain. Dispense fifteen (15). No refills. OTC Medications: Motrin (available over the counter): take according to label instructions. Follow-up: Follow up with your doctor in one week. Call for an appointment. Understanding of the discharge instructions verbalized by patient. ADDITIONAL INFORMATION Chest Wall Pain: Costochondritis The chest pain that you have had today is caused by Costochondritis. This condition is due to an inflammation of the cartilage joining the ribs to the breastbone. It is not caused by heart or lung problems. Although the exact cause for costochondritis is not known, it often occurs during times of emotional stress. It can be painful, but it is not dangerous. It usually disappears within one to two weeks, but may recur. Rarely, a more serious condition may cause symptoms similar to costochondritis; therefore, watch for the warning signs listed below. Home Care: If you feel that emotional stress is a cause of your condition, try to identify sources of that stress. It may not be obvious! Learn ways to deal with the stress in your life such as regular exercise, muscle relaxation, meditation, or simply taking time out for yourself. For more information about this, consult your doctor or go to a local bookstore and review books and tapes available on the subject of stress reduction. You may use acetaminophen (Tylenol) or ibuprofen (Motrin, Advil) to control pain, unless another pain medicine was prescribed. [ NOTE: If you have liver disease or ever had a stomach ulcer, talk with your doctor before using these medicines.] The use of heat (hot wet compress or heating pad) with or without local analgesic creams (Deep Heat Rub, Abdirahman Moran) will be helpful to reduce pain. Follow Up with your doctor as directed or sooner if you do not start to improve within the next two days. Get Prompt Medical Attention if any of the following occur: A change in the type of pain: if it feels different, becomes more severe, lasts longer, or spreads into your shoulder, arm, neck, jaw or back Shortness of breath or increased pain with breathing Weakness, dizziness, or fainting Cough with dark colored sputum (phlegm) or blood Abdominal pain Dark red or black stools Fever of 100.4F (38C) or higher, or as directed by your healthcare provider You have been given the following additional information: Chest Wall Pain, Costochondritis No strenuous activity. (Electronically signed by Richard Akhtar MD 05/08/2016 10:06)
== END 2016-05-06 01:39 | disposition home or self-care (01) ==
LOC: ED SRH 00:57
DX: M94.0 Chondrocostal junction syndrome [Tietze] (principal); R55 Syncope and collapse; F17.210 Nicotine dependence, cigarettes, uncomplicated; Z88.0 Allergy status to penicillin; Z88.1 Allergy status to other antibiotic agents

== ENCOUNTER 2016-08-03 12:14 | Emergency (ER) | payer BC ==
--- NOTE | 2016-08-03 15:04 | ED ORDER SUMMARY ---
..... Patient: MIRIAN MENDOZA OrderSheet [facility] VisitID: [id number] [place] [address] 31y, F Registration Date/Time: 08/03/2016 ORDER SHEET Weight: 79.3 kg (stated) Allergies: Amoxicillin, Penicillins GENERAL ORDERS: UA-Culture if indicated Urgent (13:05 08/03/2016 Marni ESPINOSA) (Ack 13:06 Krystin) (13:44 DDean R.N.) Urine Urgent (13:05 08/03/2016 Marni ESPINOSA) (Ack 13:06 Krystin) (13:44 DDean R.N.) MEDICATION ORDERS: IV FLUIDS: IV NS : initial bolus 1000 mL (1000 mL/hr), then none - (NOW) (13:05 08/03/2016 Marni ESPINOSA) (Ack 13:12 DDean R.N.) (13:45 DDean R.N.) Zofran IV 8 mg (NOW) (13:05 08/03/2016 Marni ESPINOSA) (Ack 13:12 DDean R.N.) (13:45 DDean R.N.) Reglan IV 10 mg (NOW) (13:32 08/03/2016 Marni ESPINOSA) (13:47 DDean R.N.) Benadryl IV 50 mg (NOW) (13:47 08/03/2016 Marni ESPINOSA) (Ack 13:54 DDean R.N.) (15:46 DDean R.N.) Haldol IV 3 mg (HIGH ALERT MEDICATION, NOW) (13:47 08/03/2016 Marni ESPINOSA) (Ack 13:54 DDean R.N.) (15:47 DDean R.N.) ORDER SHEET NOTES: [Electronically signed by Karen Purcell R.N. (15:56 08/03/2016)] [Electronically signed by Kaya Paige MD (22:29 08/03/2016)] [Electronically locked/signed by Karen Purcell R.N. (15:56 08/03/2016)]
--- NOTE | 2016-08-03 15:04 | ED ORDER SUMMARY ---
..... Patient: MIRIAN MENDOZA OrderSheet [facility] VisitID: [id number] [place] [address] 31y, F Registration Date/Time: 08/03/2016 ORDER SHEET Weight: 79.3 kg (stated) Allergies: Amoxicillin, Penicillins GENERAL ORDERS: UA-Culture if indicated Urgent (13:05 08/03/2016 Marni ESPINOSA) (Ack 13:06 Krystin) (13:44 DDean R.N.) Urine Urgent (13:05 08/03/2016 Marni ESPINOSA) (Ack 13:06 Krystin) (13:44 DDean R.N.) MEDICATION ORDERS: IV FLUIDS: IV NS : initial bolus 1000 mL (1000 mL/hr), then none - (NOW) (13:05 08/03/2016 Marni ESPINOSA) (Ack 13:12 DDean R.N.) (13:45 DDean R.N.) Zofran IV 8 mg (NOW) (13:05 08/03/2016 Marni ESPINOSA) (Ack 13:12 DDean R.N.) (13:45 DDean R.N.) Reglan IV 10 mg (NOW) (13:32 08/03/2016 Marni ESPINOSA) (13:47 DDean R.N.) Benadryl IV 50 mg (NOW) (13:47 08/03/2016 Marni ESPINOSA) (Ack 13:54 DDean R.N.) (15:46 DDean R.N.) Haldol IV 3 mg (HIGH ALERT MEDICATION, NOW) (13:47 08/03/2016 Marni ESPINOSA) (Ack 13:54 DDean R.N.) (15:47 DDean R.N.) ORDER SHEET NOTES: [Electronically signed by Karen Purcell R.N. (15:56 08/03/2016)] [Electronically signed by Kaya Paige MD (22:29 08/03/2016)] [Electronically locked/signed by Karen Purcell R.N. (15:56 08/03/2016)]
--- NOTE | 2016-08-03 15:04 | ED NURSING NOTES ---
Clinical Report - Nurses [facility] [address] [place] [address] 08/03/2016 12:15 Patient: MIRIAN MENDOZA TRIAGE Triage time 1216. Acuity: LEVEL 3. Chief Complaint: ABDOMINAL PAIN, NAUSEA and VOMITING. --12:39 Karen Purcell R.N. 12:30 08/03/16. BP: 125/77. HR: 60. RR: 20. O2 saturation: 100%. Temp: 98.4 F. Pain level now 09/01. --12:39 Karen Purcell R.N. Weight: 79.3 kg stated. Height/Length: 65 inches Per Patient. BMI: 29.1. --12:33 Karen Purcell R.N. Medications B-12. Biotin. LamoTRIgine Oral 300mg daily . --12:35 Karen Purcell R.N. Omeprazole Oral 20 mg, daily. --12:35 Karen Purcell R.N. Allergies Amoxicillin. Penicillins. --12:35 Karen Purcell R.N. History Arrived by private vehicle. Historian: patient. Unaccompanied. Primary physician (jose). Onset. (awoke this am with N/V and pain in gastric sleeve area). She has had nausea and vomiting. She has had abdominal pain (midline abd pian'in my stomach sleeve" - had sleeve placed 11 months ago). SOCIAL HX: Light tobacco smoker (cigarette)- less than 1/2 a pack per day. Occasional alcohol use. History of drug use: marijuana. --12:39 Karen Purcell R.N. PROBLEMS: Costochondritis. Polycystic Ovary Disease. Bipolar Disorder. Anxiety Reaction. Depression. --12:34 Karen Purcell R.N. UTI - Urinary Tract Infection [RuleOut]. --12:34 Karen Purcell R.N. ADDITIONAL SURGERIES: Adenoidectomy. Gastric sleeve []. Tonsillectomy. Tubal Ligation. --12:34 Karen Purcell R.N. Interventions ID band on patient. To treatment room. --12:39 Karen Purcell R.N. PHYSICAL ASSESSMENT 12:20. Ambulatory to room. Patient gowned. GENERAL / NEURO / PSYCH: Alert. Oriented X 4. Appears anxious. RESPIRATORY: Respirations not labored. CVS: Capillary refill less than 2 seconds. GI / : The patient has had nausea. Emesis noted. SKIN: Skin is warm and dry. --12:40 Karen Purcell R.N. NURSING PROGRESS NOTES 12:20. Patient gowned. Head of bed elevated. Reassurance given. Patient identifiers checked. Call light placed in reach. Side rails up. Bed placed in lowest position. Patient ready for evaluation- chart flagged. --12:40 Karen Purcell R.N. 13:10. Patient ID band checked for patient name and birthdate: patient confirmed. Clean catch urine collected with return of yellow-colored cloudy urine; sample sent to lab for urinalysis and culture. Specimen labeled in the presence of the patient (POC preg= Neg, ERMD notifed). --13:43 Karen Purcell R.N. 13:17 08/03/2016 Site #1 started via IV in the right antecubital space with an 20g angiocath, with aseptic technique and good blood return; one attempt. Blood drawn: rainbow set. Labeled in the presence of the patient and sent to the lab. Saline lock flushed with 10 mL saline. --13:44 Karen Purcell R.N. 13:20 08/03/2016 Zofran (Ondansetron HCl) IVP 8 mg given over 1 minute(s) via site #1. IV patency established. IV site checked: no pain, redness, or swelling. IV flushed thoroughly pre- and post-medication administration. IVP given by RN. --13:45 Karen Purcell R.N. 13:30 08/03/2016 Started bag #1 1000 mL IV Fluids IV NS (Saline); at 1000 mL/hr over 1 hour(s) via site #1 via IV pump. IV patency established. IV site checked: no pain, redness, or swelling. IV flushed thoroughly pre- and post-medication administration. --13:45 Karen Purcell R.N. 13:17 Pt continues to sit up and wretch, IV started meds given. --13:47 Karen Purcell R.N. 13:32 08/03/2016 Reglan (Metoclopramide HCl) IVP 10 mg given over 2 minute(s) via site #1. IV patency established. IV site checked: no pain, redness, or swelling. IV flushed thoroughly pre- and post-medication administration. IVP given by RN. --13:47 Karen Purcell R.N. 13:30. ( pt asking for sheet, "i just keep getting too hot or too cold" pt also c/o pain ERMD notified and additional meds ordered and given). --15:42 Karen Purcell R.N. 13:45. ( Pt states pain and nausea worse, asking for 'the same mix of meds they gave last time" ERMD notified and orders placed for meds.). --15:43 Karen Purcell R.N. 13:50. ( Friends at bedside, stated IV came apart and is leaking. site fixed, and pt again asking for additional pain meds,"I have a ride now". Informed pt that I have meds orders and was in the process of getting them). --15:45 Karen Purcell R.N. 13:53 08/03/2016 Benadryl (DiphenhydrAMINE HCl) IVP 50 mg given over 1 minute(s) via site #1. IV patency established. IV site checked: no pain, redness, or swelling. IV flushed thoroughly pre- and post-medication administration. IVP given by RN. --15:46 Karen Purcell R.N. 13:54 08/03/2016 HALDOL (Haloperidol Lactate) IVP 3 mg given over 1 minute(s) via site #1. IV patency established. IV site checked: no pain, redness, or swelling. IV flushed thoroughly pre- and post-medication administration. IVP given by RN. --15:47 Karen Purcell R.N. 14:05 Pt sleeping, friends leaving, will return later to cloth picker pt. --15:48 Karen Purcell R.N. 14:15 08/03/16. BP: 130/72. HR: 54. RR: 16. O2 saturation: 99%. Temp: deferred. Pain level now unable to obtain. Additional comments: pt sleeping. --15:49 Karen Purcell R.N. 14:40 IV bag #1 complete, pt awakened by noise, asking when she could go home. Message left for ERMD. Site convereted to saline lock. --15:51 Karen Purcell R.N. 14:45 08/03/2016 IV Fluids IV NS Discontinued: bag #1 infused. Total amount infused: 1000 mL (site converted to saline lock). --15:53 Karen Purcell R.N. 15:15 Pt notified that she can call for ride, asked pt about nausea and she said it was "better...about normal" IV site dc'd. --15:55 Karen Purcell R.N. 15:15 08/03/2016 Site #1 removed upon discharge. Bandaid applied. --15:55 Karen Purcell R.N. DISPOSITION / DISCHARGE 15:25. Condition at departure: stable. No learning barriers present. Discharge instructions provided and reviewed with the patient. Reviewed medication(s) (zofran). Patient verbalized understanding. Written instructions provided in Syriac. The patient was discharged home and accompanied by dancing master. She left the Emergency Department ambulatory and via private vehicle. Count Team Member driving. --15:40 Karen Purcell R.N. 15:25 08/03/16. BP: 134/71. HR: 52. RR: 18. O2 saturation: 99%. Temp: deferred. Pain level now: 07/02. --15:40 Karen Purcell R.N. Locked/Released at 08/03/2016 15:56 by Karen Purcell R.N.
--- NOTE | 2016-08-03 15:04 | ED CLINICAL REPORT ---
Clinical Report - Physicians/Mid Levels [facility] [address] [place] [address] 08/03/2016 12:15 Patient: MIRIAN MENDOZA Time Seen: 12:39. Arrived- By private vehicle. Historian- patient. HISTORY OF PRESENT ILLNESS Chief Complaint: VOMITING. This started today and is still present. No recent travel. She has had nausea, vomiting and moderate, intermittent abdominal pain. The pain is described as located in the epigastrium. No diarrhea, black stools, bloody stools, constipation or flank pain. No history of possible bad food exposure or change in routine. Has not recently been camping or on antibiotics. She has had contact with a sick child. The illness is described as moderate. Similar symptoms previously: Many times. Recent medical care: Not recently seen/assessed. REVIEW OF SYSTEMS No fever, muscle aches, difficulty with urination, dark urine or headache. No dizziness, sore throat, cough, chest pain or difficulty breathing. No excessive urination, skin rash, jaundice, back pain or fainting episodes. No blurred vision. Denies current . All systems otherwise negative, except as recorded above. PAST HISTORY Problems: Polycystic Ovary Disease. Bipolar Disorder. Immunizations. Anxiety Reaction. Depression. Additional Surgeries: Adenoidectomy. Gastric sleeve []. Tonsillectomy. Tubal Ligation. Medications: Omeprazole Oral 20 mg, daily. B-12. Biotin. LamoTRIgine Oral 300mg daily . Allergies: Amoxicillin. Penicillins. SOCIAL HISTORY Smoker- current status unknown. Alcohol use. History of drug use: marijuana. ADDITIONAL NOTES The nursing notes have been reviewed. PHYSICAL EXAM Vital Signs: 08/03/2016 12:20 BP: 125/77. HR: 60. RR: 20. O2 saturation: 100%. Temp: 98.4 F. Have been reviewed. Appearance: Alert. Oriented X3. Patient in mild distress. Distress appears due to pain. Eyes: Pupils equal, round and reactive to light. Eyes normal inspection. ENT: Nose normal. Neck: Normal inspection. CVS: Normal heart rate and rhythm. Heart sounds normal. Pulses normal. Respiratory: No respiratory distress. Breath sounds normal. Abdomen: Soft and nontender. (Patient denies tenderness when I palpate her epigastrium.). Back: Normal inspection. No CVA tenderness. Skin: Skin warm and dry. Normal skin color. No rash. Normal skin turgor. Extremities: Extremities exhibit normal ROM. No lower extremity edema. Neuro: No motor deficit. No sensory deficit. (Patient is grossly oriented.). LABS, X-RAYS, AND EKG Pulse Oximetry: 08/03/2016 12:20 O2 saturation: 100%. (FIO2 - room air). Interpretation: normal. PROGRESS AND PROCEDURES Course of Care: Patient was treated symptomatically with IV fluids and Zofran, Reglan, Haldol and Benadryl. Patient was found to be feeling better after the above interventions. Patient's symptoms were consistent with her many previous episodes of vomiting, and I did not find evidence of an acute emergent condition. I did feel the patient is stable for discharge home after symptomatic improvement. Patient counseled in person regarding the patient's stable condition, diagnosis and need for follow-up. Concerns were addressed. Old medical records reviewed. Disposition: Discharged. Condition: stable and improved. CLINICAL IMPRESSION Vomiting with nausea. INSTRUCTIONS Drink plenty of fluids. Warnings: SEDATIVE MEDICATION: You were given sedative medication during your visit. Do not drive or operate dangerous machinery for 8 hours. GENERAL WARNINGS: Return or contact your physician immediately if your condition worsens or changes unexpectedly, if not improving as expected, or if other problems arise. Your Current Medications: CONTINUE TAKING THE FOLLOWING MEDICATIONS: B-12*. Biotin*. LamoTRIgine Oral : 300mg daily. Omeprazole Oral : 20 mg daily. Prescription Medications: Zofran (orally disintegrating tablets) 4 mg: take 1-2 orally every 6 hours as needed for nausea. Dispense ten (10). No refill. Substitution is permissible. Follow-up: Follow up with your doctor as needed. Understanding of the discharge instructions verbalized by patient. (Electronically signed by Kaya Paige MD 08/03/2016 22:29)
--- NOTE | 2016-08-03 22:30 | ED MAR SUMMARY ---
..... Medication Administration Record [facility] [address] [place] [address] Patient: MIRIAN MENDOZA Visit ID: [id number] 31y, F Weight: 79.3 kg Height/Length: 65 in BMI: 29.1 ALLERGIES: Amoxicillin, Penicillins Given 13:20 08/03/2016 Karen Purcell R.N. Medication Administered: ZOFRAN [IVP] (ONDANSETRON HCL), Dose: 8 mg IVP over 1 minute(s), Site: #1 right AC. Medication Ordered: Zofran IV 8 mg (NOW). Start 13:30 08/03/2016 Karen Purcell R.N., Stop 14:45 08/03/2016 Karen Purcell R.N. Medication Administered: IV NS (SALINE), Dose: IV Fluids over 1 hour(s), Rate: 1000 mL/hr, Dispensed: 1000 mL bag, Site: #1 right AC. Medication Ordered: IV NS : initial bolus 1000 mL (1000 mL/hr), then none - (NOW). Given 13:32 08/03/2016 Karen Purcell R.N. Medication Administered: REGLAN [IVP] (METOCLOPRAMIDE HCL), Dose: 10 mg IVP over 2 minute(s), Site: #1 right AC. Medication Ordered: Reglan IV 10 mg (NOW). Given 13:53 08/03/2016 Karen Purcell R.N. Medication Administered: BENADRYL [IVP] (DIPHENHYDRAMINE HCL), Dose: 50 mg IVP over 1 minute(s), Site: #1 right AC. Medication Ordered: Benadryl IV 50 mg (NOW). Given 13:54 08/03/2016 Karen Purcell R.N. Medication Administered: HALDOL [IVP] (HALOPERIDOL LACTATE), Dose: 3 mg IVP over 1 minute(s), Site: #1 right AC. Medication Ordered: Haldol IV 3 mg (HIGH ALERT MEDICATION, NOW).
--- NOTE | 2016-08-03 22:30 | ED MAR SUMMARY ---
..... Medication Administration Record [facility] [address] [place] [address] Patient: MIRIAN MENDOZA Visit ID: [id number] 31y, F Weight: 79.3 kg Height/Length: 65 in BMI: 29.1 ALLERGIES: Amoxicillin, Penicillins Given 13:20 08/03/2016 Karen Purcell R.N. Medication Administered: ZOFRAN [IVP] (ONDANSETRON HCL), Dose: 8 mg IVP over 1 minute(s), Site: #1 right AC. Medication Ordered: Zofran IV 8 mg (NOW). Start 13:30 08/03/2016 Karen Purcell R.N., Stop 14:45 08/03/2016 Karen Purcell R.N. Medication Administered: IV NS (SALINE), Dose: IV Fluids over 1 hour(s), Rate: 1000 mL/hr, Dispensed: 1000 mL bag, Site: #1 right AC. Medication Ordered: IV NS : initial bolus 1000 mL (1000 mL/hr), then none - (NOW). Given 13:32 08/03/2016 Karen Purcell R.N. Medication Administered: REGLAN [IVP] (METOCLOPRAMIDE HCL), Dose: 10 mg IVP over 2 minute(s), Site: #1 right AC. Medication Ordered: Reglan IV 10 mg (NOW). Given 13:53 08/03/2016 Karen Purcell R.N. Medication Administered: BENADRYL [IVP] (DIPHENHYDRAMINE HCL), Dose: 50 mg IVP over 1 minute(s), Site: #1 right AC. Medication Ordered: Benadryl IV 50 mg (NOW). Given 13:54 08/03/2016 Karen Purcell R.N. Medication Administered: HALDOL [IVP] (HALOPERIDOL LACTATE), Dose: 3 mg IVP over 1 minute(s), Site: #1 right AC. Medication Ordered: Haldol IV 3 mg (HIGH ALERT MEDICATION, NOW).
--- NOTE | 2016-08-03 22:30 | ED MED RECONCILIATION SUMMARY ---
Patient: MIRIAN MENDOZA Medication Reconciliation Report [facility] VisitID: [id number] [address] [place] [address] 31y, F Registration Date/Time: 08/03/2016 Weight: 79.3 kg Height/Length: 65 in. BMI: 29.1 ALLERGIES: Amoxicillin, Penicillins The patient's Home Medications are listed below: CONTINUE TAKING THE FOLLOWING MEDICATIONS: B-12 Biotin LamoTRIgine Oral 300mg daily Omeprazole Oral 20 mg, daily The source(s) of the original Home Medication information: Not obtained. The following Medications were given to the patient in the Emergency Department: IV NS IV Fluids bolus 0, then 1000 mL/hr, administered: 08/03/2016 1:30:00 PM Zofran [IVP] IVP 8 mg, administered: 08/03/2016 1:20:00 PM Reglan [IVP] IVP 10 mg, administered: 08/03/2016 1:32:00 PM Benadryl [IVP] IVP 50 mg, administered: 08/03/2016 1:53:00 PM HALDOL [IVP] IVP 3 mg, administered: 08/03/2016 1:54:00 PM The following Medications were prescribed to the patient: Zofran (orally disintegrating tablets) 4 mg: take 1-2 orally every 6 hours as needed for nausea. Dispense ten (10). No refill. Substitution is permissible. -- Kaya Paige MD
--- NOTE | 2016-08-03 22:30 | ED DISCHARGE INSTRUCTIONS ---
Patient: MIRIAN MENDOZA General Instructions Merged With [facility] VisitID: [id number] [place] [address] 31y, F Registration Date/Time: 08/03/2016 Vomiting with nausea. INSTRUCTIONS Drink plenty of fluids. Warnings: SEDATIVE MEDICATION: You were given sedative medication during your visit. Do not drive or operate dangerous machinery for 8 hours. GENERAL WARNINGS: Return or contact your physician immediately if your condition worsens or changes unexpectedly, if not improving as expected, or if other problems arise. Your Current Medications: CONTINUE TAKING THE FOLLOWING MEDICATIONS: B-12*. Biotin*. LamoTRIgine Oral : 300mg daily. Omeprazole Oral : 20 mg daily. Prescription Medications: Zofran (orally disintegrating tablets) 4 mg: take 1-2 orally every 6 hours as needed for nausea. Dispense ten (10). No refill. Substitution is permissible. Follow-up: Follow up with your doctor as needed. Understanding of the discharge instructions verbalized by patient. ADDITIONAL INFORMATION Vomiting [6Yr-Adult] Vomiting is a common symptom that may be due to different causes. These include gastroenteritis ("stomach flu"), food poisoning and gastritis. There are other more serious causes of vomiting which may be hard to diagnose early in the illness. Therefore, it is important to watch for the warning signs listed below. The main danger from repeated vomiting is dehydration. This is due to excess loss of water and minerals from the body. When this occurs, body fluids must be replaced. Home Care: If symptoms are severe, rest at home for the next 24 hours. You may use acetaminophen (Tylenol) or ibuprofen (Motrin, Advil) to control fever, unless another medicine was prescribed. [NOTE : If you have chronic liver or kidney disease or ever had a stomach ulcer or GI bleeding, talk with your doctor before using these medicines.] (Aspirin should never be used in anyone under 18 years of age who is ill with a fever. It may cause severe liver damage.) Avoid tobacco and alcohol use, which may worsen your symptoms. If medicines for vomiting were prescribed, take as directed. Once vomiting stops, then follow these guidelines: During The First 12-24 Hours follow the diet below: FRUIT JUICES: Apple, grape juice, clear fruit drinks, and electrolyte replacement drinks. BEVERAGES: Soft drinks without caffeine; mineral water (plain or flavored), decaffeinated tea and coffee. SOUPS: Clear broth, consomm and bouillon DESSERTS: Plain gelatin, popsicles and fruit juice bars. As you feel better, you may add 6-8 ounces of yogurt per day. During The Next 24 Hours you may add the following to the above: Hot cereal, plain toast, bread, rolls, crackers Plain noodles, rice, mashed potatoes, chicken noodle or rice soup Unsweetened canned fruit (avoid pineapple), bananas Limit caffeine and chocolate. No spices or seasonings except salt. During The Next 24 Hours Gradually resume a normal diet, as you feel better and your symptoms lessen. Follow Up with your doctor as advised if you are not improving over the next 2-3 days. Get Prompt Medical Attention if any of the following occur: Constant right-sided lower abdominal pain or increasing general abdominal pain Continued vomiting (unable to keep liquids down) for 24 hours Frequent diarrhea (more than 5 times a day); blood (red or black color) or mucus in diarrhea Reduced urine output or extreme thirst Weakness, dizziness or fainting Unusually drowsy or confused Fever of 100.4F (38C) oral or higher, not better with fever medication Yellow color of the eyes or skin You have been given the following additional information: Vomiting (7Y-Adult) (Electronically signed by Kaya Paige MD 08/03/2016 22:29)
--- NOTE | 2016-08-03 22:30 | ED MED RECONCILIATION SUMMARY ---
Patient: MIRIAN MENDOZA Medication Reconciliation Report [facility] VisitID: [id number] [address] [place] [address] 31y, F Registration Date/Time: 08/03/2016 Weight: 79.3 kg Height/Length: 65 in. BMI: 29.1 ALLERGIES: Amoxicillin, Penicillins The patient's Home Medications are listed below: CONTINUE TAKING THE FOLLOWING MEDICATIONS: B-12 Biotin LamoTRIgine Oral 300mg daily Omeprazole Oral 20 mg, daily The source(s) of the original Home Medication information: Not obtained. The following Medications were given to the patient in the Emergency Department: IV NS IV Fluids bolus 0, then 1000 mL/hr, administered: 08/03/2016 1:30:00 PM Zofran [IVP] IVP 8 mg, administered: 08/03/2016 1:20:00 PM Reglan [IVP] IVP 10 mg, administered: 08/03/2016 1:32:00 PM Benadryl [IVP] IVP 50 mg, administered: 08/03/2016 1:53:00 PM HALDOL [IVP] IVP 3 mg, administered: 08/03/2016 1:54:00 PM The following Medications were prescribed to the patient: Zofran (orally disintegrating tablets) 4 mg: take 1-2 orally every 6 hours as needed for nausea. Dispense ten (10). No refill. Substitution is permissible. -- Kaya Paige MD
== END 2016-08-03 15:25 | disposition home or self-care (01) ==
LOC: ED SRH 12:14
DX: R11.2 Nausea with vomiting, unspecified (principal); F31.9 Bipolar disorder, unspecified; Z79.899 Other long term (current) drug therapy; Z88.0 Allergy status to penicillin
CPT/HCPCS: 90004; 90469; 93070